=== PATIENT | female | born 1970 | race Caucasian/White ===

== ENCOUNTER 2017-05-16 19:45 | Observation (INO) | payer BC, MEDICAID ==
[2017-05-16] MEDS ORDERED: LORazepam 2 MG/ML MDV IVPUSH ONE (19:47)
[2017-05-16] MEDS ORDERED: Sodium Chloride 0.9% 1,000 ML IV ONE (19:47)
[2017-05-16] MEDS ORDERED: Sodium Chloride 0.9% 10 ML Syringe FLUSH PRN (19:47)
[2017-05-16] MEDS ORDERED: Ketorolac 30 MG/ML SDV IVPUSH ONE (19:47)
[2017-05-16] MEDS ORDERED: Sodium Chloride 0.9% 2.5 ML Syringe FLUSH PRN (19:47)
--- NOTE | 2017-05-16 19:52 | EDM.PDOC ---
ED HPI GENERAL MEDICAL PROBLEM - General Stated Complaint: PT HAS STOMACH PAINS Time Seen by Provider: 05/16/17 19:45 - History of Present Illness INITIAL COMMENTS - FREE TEXT/NARRATIVE: HISTORY AND PHYSICAL: History of present illness: The patient is a 46-year-old female with a history of a total hysterectomy who presents via EMS after having a syncopal event states was secondary to discomfort. According to the patient she had a normal day today but only drink 2 diet sodas all day and no hydration and was outside with family and friends when she passed out. According to EMS he was nauseated when she woke and the syncope was only brief and she had no trauma. Broderick prior to arrival. The patient states that she had a normal day until she started having some numbness and tingling in her left fifth digit and she went to see a chiropractor today at 5 PM. She had a neck and back adjusted I did not feel any significant changes. She says that she started having lower abdominal cramping and diffuse body aches after she had the brief syncopal event. The patient is not very organized with her history and it is difficult to obtain but she currently complaints of lower abdominal cramping and discomfort but no back or neck pain. She has no chest pain or shortness of breath no headache and no focal weakness. Patient is unsure if she had a bowel movement today and does state that she's had decreased urine output throughout the day and thinks she might be dehydrated. Review of systems: As per history of present illness and below otherwise all systems reviewed and negative. Past medical history: As per history of present illness and as reviewed below otherwise noncontributory. Surgical history: As per history of present illness and as reviewed below otherwise noncontributory. Social history: No reported history of drug or alcohol abuse. Family history: As per history of present illness and as reviewed below otherwise noncontributory. Physical exam: Gen.: Well-developed thin female who is nontoxic and has difficulty sitting still in the ED. During the taking of the blood pressure with the cuff she had carpal spasm. She moves all extremities spontaneously HEENT: Atraumatic, normocephalic, pupils reactive, negative for conjunctival pallor or scleral icterus, mucous membranes tacky, throat clear, neck supple, nontender, trachea midline. Lungs: Clear to auscultation, breath sounds equal bilaterally, chest nontender. Heart: S1S2, regular, negative for clicks, rubs, or JVD. Abdomen: Soft, nondistended, nontender on deep palpation but the patient indicates the lower abdomen is the area of cramping. Bowel sounds are hypoactive and there is no rebound guarding or tympany on percussion.. Negative for masses or hepatosplenomegaly. Negative for costovertebral tenderness. Pelvis: Stable nontender. Genitourinary: Deferred. Rectal: Deferred. Extremities: Atraumatic, negative for cords or calf pain. Neurovascular unremarkable. Full range of motion without any defects or deficits Neuro: Awake, alert, oriented. Cranial nerves II through XII unremarkable. Cerebellum unremarkable. Motor and sensory unremarkable throughout. Exam nonfocal. Back: There are no midline step-offs in his defects of the cervical thoracic or lumbar spine no posterior rib tenderness. There is no evidence of any soft tissue injuries seen on the back Diagnostics: EKG CBC CMP amylase lipase troponin UA CT scan of the head abdomen and pelvis Therapeutics: IV O2 monitor IV fluids, patient received Zofran per EMS, Toradol Ativan Per nursing when the patient got up to go to the bathroom she seemed very unsteady with her gait and somewhat lightheaded. I discussed all testing results with the patient and family at bedside. They state that she has had episodes in the past with similar symptomatology of brief episodes of syncope and they agree that she is not quite at her baseline. The patient has no abdominal complaints currently and is sleeping. I discussed the CT scan results with the children at bedside and will discuss the case with our hospitalist for admission. 2255: Case was discussed with Dr. Hanna who request that orthostatics be done and he accepts the patient for admission. Impression: Syncope Definitive disposition and diagnosis as appropriate pending reevaluation and review of above. Abdominal Pain Score (Numeric/FACES): 7 - Related Data Allergies Allergy/AdvReac Type Severity Reaction Status Date / Time cyclobenzaprine HCl Allergy Intermediate Rash Verified 05/22/15 06:05 [From Flexeril] sulfamethoxazole Allergy Intermediate Hives Verified 05/22/15 06:05 [From Bactrim] trimethoprim [From Bactrim] Allergy Intermediate Hives Verified 05/22/15 06:05 codeine Allergy Swelling Verified 03/18/15 13:54 hydrocodone Allergy Swelling Verified 03/18/15 13:54 latex Allergy Respiratory Verified 03/18/15 13:54 Depression metronidazole [From Flagyl] Allergy Itching Verified 03/18/15 13:54 nitrofurantoin Allergy Rash Verified 03/18/15 13:54 [From Macrobid] nitrofurantoin Allergy Rash Verified 03/18/15 13:54 macrocrystalline [From Macrobid] Benzoine Allergy Hives Uncoded 03/18/15 13:54 Sulfa Allergy Hives Uncoded 03/18/15 13:54 Home Meds: Home Meds Acetaminophen/oxyCODONE [Percocet 325-5 MG] 1 - 2 tab PO Q6H #15 tablet [Rx] Estradiol Acetate [Femring] 1 each VG DAILY 03/19/15 [History] Ethinyl Estradiol/Etonogestrel [Nuvaring Vaginal Ring] 1 05/22/15 [History] Past Medical History Other OB/BYN History: biopsy and mass removed from vagina - Past Surgical History Other GI Surgeries/Procedures: lab band Other Musculoskeletal Surgeries/Procedures:: L knee surgery, R thumb surgery Social & Family History - Tobacco Use Smoking Status *Q: Light Tobacco Smoker Years of Tobacco use: 30 Second Hand Smoke Exposure: Yes - Alcohol Use Days Per Week of Alcohol Use: 0 Number of Drinks Per Day: 0 Total Drinks Per Week: 0 - Recreational Drug Use Recreational Drug Use: Yes Drug Use in Last 12 Months: No Recreational Drug Type: Reports: Marijuana/Hashish, Methamphetamine Recreational Drug Use Frequency: Not Used In Over 1 Year ED ROS GENERAL - Review of Systems Review Of Systems: ROS reveals no pertinent complaints other than HPI. ED EXAM, GENERAL - Physical Exam Exam: See Below (see dictation) Course - Vital Signs Last Recorded V/S: Last Vital Signs Temp 35.8 C 05/16/17 20:38 Pulse 88 05/16/17 20:38 Resp 20 05/16/17 20:38 BP 137/98 H 05/16/17 20:38 Pulse Ox 95 05/16/17 20:38 - Orders/Labs/Meds Orders: Active Orders 24 hr Category Date Time Status Patient Status [ADT] Stat ADT 05/16/17 22:59 Ordered Cardiac Monitoring [RC] . DIRECTED Care 05/16/17 19:46 Active EKG Documentation Completion [RC] STAT Care 05/16/17 19:46 Active Orthostatic Vital Signs [RC] ASDIRECTED Care 05/16/17 22:58 Ordered Oxygen Therapy, ED [RC] ASDIRECTED Care 05/16/17 19:46 Active Pulse Oximetry [RC] ASDIRECTED Care 05/16/17 19:46 Active Abdomen Pelvis w Cont [CT] Stat Exams 05/16/17 19:47 Taken Head wo Cont [CT] Stat Exams 05/16/17 19:47 Taken Sodium Chloride 0.9% [Saline Flush] Med 05/16/17 19:47 Active 10 ml FLUSH ASDIRECTED PRN Sodium Chloride 0.9% [Saline Flush] Med 05/16/17 19:47 Active 2.5 ml FLUSH ASDIRECTED PRN Saline Lock Insert [OM.PC] Stat Oth 05/16/17 19:46 Ordered Medication Orders Sodium Chloride (Saline Flush) 10 ml FLUSH ASDIRECTED PRN PRN Reason: Keep Vein Open Last Admin: 05/16/17 20:06 Dose: 10 ml Sodium Chloride (Saline Flush) 2.5 ml FLUSH ASDIRECTED PRN PRN Reason: Keep Vein Open Last Admin: 05/16/17 20:06 Dose: 2.5 ml Labs: Laboratory Tests 05/16/17 05/16/17 05/16/17 Range/Units 19:57 19:57 19:57 WBC 6.48 (4.0-11.0) K/uL RBC 4.07 L (4.30-5.90) M/uL Hgb 12.3 (12.0-16.0) g/dL Hct 35.9 L (36.0-46.0) % MCV 88.2 (80.0-98.0) fL MCH 30.2 (27.0-32.0) pg MCHC 34.3 (31.0-37.0) g/dL RDW Std Deviation 41.9 (28.0-62.0) fl RDW Coeff of Vianey 13 (11.0-15.0) % Plt Count 311 (150-400) K/uL MPV 8.80 (7.40-12.00) fL Neut % (Auto) 47.0 L (48.0-80.0) % Lymph % (Auto) 43.8 H (16.0-40.0) % Tyrrell % (Auto) 5.6 (0.0-15.0) % Eos % (Auto) 2.8 (0.0-7.0) % Baso % (Auto) 0.8 (0.0-1.5) % Neut # (Auto) 3.1 (1.4-5.7) K/uL Lymph # (Auto) 2.8 H (0.6-2.4) K/uL Tyrrell # (Auto) 0.4 (0.0-0.8) K/uL Eos # (Auto) 0.2 (0.0-0.7) K/uL Baso # (Auto) 0.1 (0.0-0.1) K/uL Nucleated RBC % 0.0 /100WBC Nucleated RBCs # 0 K/uL Sodium 141 (136-146) mmol/L Potassium 3.3 L (3.5-5.1) mmol/L Chloride 108 (98-110) mmol/L Carbon Dioxide 22 (21-31) mmol/L BUN 14 (6.0-23.0) mg/dL Creatinine 0.8 (0.6-1.5) mg/dL Est Cr Clr Drug Dosing TNP Estimated GFR (MDRD) > 60.0 ml/min Glucose 109 (60-110) mg/dL Calcium 8.4 L (8.8-10.8) mg/dL Total Bilirubin 0.3 (0.1-1.5) mg/dL AST 17 (5-40) IU/L ALT 11 (8-54) IU/L Alkaline Phosphatase 58 (40-150) Troponin I < 0.10 (0.0-0.29) NG/ML Total Protein 6.0 (6.0-8.0) g/dL Albumin 3.7 (3.5-5.0) g/dL Globulin 2.3 (2.0-3.5) g/dL Albumin/Globulin Ratio 1.6 (1.3-2.8) Amylase 37 (10-90) U/L Lipase 21 (7-80) U/L Urine Color Urine Appearance Urine pH (5.0-8.0) Ur Specific [place] (1.001-1.035) Urine Protein (NEGATIVE) mg/dL Urine Glucose (UA) (NEGATIVE) mg/dL Urine Ketones (NEGATIVE) mg/dL Urine Occult Blood (NEGATIVE) Urine Nitrite (NEGATIVE) Urine Bilirubin (NEGATIVE) Urine Urobilinogen (<2.0) EU/dL Ur Leukocyte Esterase (NEGATIVE) Urine RBC (0-2/HPF) Urine WBC (0-5/HPF) Ur Epithelial Cells (NONE-FEW) Urine Bacteria (NEGATIVE) 05/16/17 Range/Units 22:05 WBC (4.0-11.0) K/uL RBC (4.30-5.90) M/uL Hgb (12.0-16.0) g/dL Hct (36.0-46.0) % MCV (80.0-98.0) fL MCH (27.0-32.0) pg MCHC (31.0-37.0) g/dL RDW Std Deviation (28.0-62.0) fl RDW Coeff of Vianey (11.0-15.0) % Plt Count (150-400) K/uL MPV (7.40-12.00) fL Neut % (Auto) (48.0-80.0) % Lymph % (Auto) (16.0-40.0) % Tyrrell % (Auto) (0.0-15.0) % Eos % (Auto) (0.0-7.0) % Baso % (Auto) (0.0-1.5) % Neut # (Auto) (1.4-5.7) K/uL Lymph # (Auto) (0.6-2.4) K/uL Tyrrell # (Auto) (0.0-0.8) K/uL Eos # (Auto) (0.0-0.7) K/uL Baso # (Auto) (0.0-0.1) K/uL Nucleated RBC % /100WBC Nucleated RBCs # K/uL Sodium (136-146) mmol/L Potassium (3.5-5.1) mmol/L Chloride (98-110) mmol/L Carbon Dioxide (21-31) mmol/L BUN (6.0-23.0) mg/dL Creatinine (0.6-1.5) mg/dL Est Cr Clr Drug Dosing Estimated GFR (MDRD) ml/min Glucose (60-110) mg/dL Calcium (8.8-10.8) mg/dL Total Bilirubin (0.1-1.5) mg/dL AST (5-40) IU/L ALT (8-54) IU/L Alkaline Phosphatase (40-150) Troponin I (0.0-0.29) NG/ML Total Protein (6.0-8.0) g/dL Albumin (3.5-5.0) g/dL Globulin (2.0-3.5) g/dL Albumin/Globulin Ratio (1.3-2.8) Amylase (10-90) U/L Lipase (7-80) U/L Urine Color YELLOW Urine Appearance CLEAR Urine pH 6.0 (5.0-8.0) Ur Specific [place] <= 1.005 (1.001-1.035) Urine Protein NEGATIVE (NEGATIVE) mg/dL Urine Glucose (UA) NEGATIVE (NEGATIVE) mg/dL Urine Ketones NEGATIVE (NEGATIVE) mg/dL Urine Occult Blood NEGATIVE (NEGATIVE) Urine Nitrite NEGATIVE (NEGATIVE) Urine Bilirubin NEGATIVE (NEGATIVE) Urine Urobilinogen 0.2 (<2.0) EU/dL Ur Leukocyte Esterase NEGATIVE (NEGATIVE) Urine RBC 0-1 (0-2/HPF) Urine WBC 0-2 (0-5/HPF) Ur Epithelial Cells FEW (NONE-FEW) Urine Bacteria FEW (NEGATIVE) Meds: Medications Generic Name Dose Route Start Last Admin Trade Name Freq PRN Reason Stop Dose Admin Sodium Chloride 10 ml 05/16/17 19:47 05/16/17 20:06 Saline Flush FLUSH 10 ml ASDIRECTED PRN Administration Keep Vein Open Sodium Chloride 2.5 ml 05/16/17 19:47 05/16/17 20:06 Saline Flush FLUSH 2.5 ml ASDIRECTED PRN Administration Keep Vein Open Discontinued Medications Generic Name Dose Route Start Last Admin Trade Name Freq PRN Reason Stop Dose Admin Sodium Chloride 1,000 mls @ 999 mls/hr 05/16/17 19:47 05/16/17 20:06 Normal Saline IV 05/16/17 20:47 999 mls/hr STAT ONE Administration Iopamidol 100 ml 05/16/17 20:08 05/16/17 20:09 Isovue Multipack-370 (76%) IVPUSH 05/16/17 20:09 100 ml ONETIME STA Administration Ketorolac Tromethamine 30 mg 05/16/17 19:47 05/16/17 20:10 Toradol IVPUSH 05/16/17 19:48 30 mg ONETIME ONE Administration Lorazepam 0.5 mg 05/16/17 19:47 05/16/17 20:07 Ativan IVPUSH 05/16/17 19:48 0.5 mg ONETIME ONE Administration Departure - Departure Time of Disposition: 23:00 Disposition: Refer to Observation Condition: Good Clinical Impression: Syncope Qualifiers: Syncope type: unspecified Qualified Code(s): R55 - Syncope and collapse - Discharge Information - My Orders Last 24 Hours: My Active Orders 05/16/17 19:46 Cardiac Monitoring [RC] . DIRECTED EKG Documentation Completion [RC] STAT Oxygen Therapy, ED [RC] ASDIRECTED Pulse Oximetry [RC] ASDIRECTED Saline Lock Insert [OM.PC] Stat 05/16/17 19:47 Abdomen Pelvis w Cont [CT] Stat Head wo Cont [CT] Stat Sodium Chloride 0.9% [Saline Flush] 10 ml FLUSH ASDIRECTED PRN Sodium Chloride 0.9% [Saline Flush] 2.5 ml FLUSH ASDIRECTED PRN 05/16/17 22:58 Orthostatic Vital Signs [RC] ASDIRECTED 05/16/17 22:59 Patient Status [ADT] Stat - Assessment/Plan Last 24 Hours: My Active Orders 05/16/17 19:46 Cardiac Monitoring [RC] . DIRECTED EKG Documentation Completion [RC] STAT Oxygen Therapy, ED [RC] ASDIRECTED Pulse Oximetry [RC] ASDIRECTED Saline Lock Insert [OM.PC] Stat 05/16/17 19:47 Abdomen Pelvis w Cont [CT] Stat Head wo Cont [CT] Stat Sodium Chloride 0.9% [Saline Flush] 10 ml FLUSH ASDIRECTED PRN Sodium Chloride 0.9% [Saline Flush] 2.5 ml FLUSH ASDIRECTED PRN 05/16/17 22:58 Orthostatic Vital Signs [RC] ASDIRECTED 05/16/17 22:59 Patient Status [ADT] Stat
[2017-05-16] MEDS ORDERED: Iopamidol 755 MG/ML 500 ML Multipack Bottle IVPUSH STA (20:08)
[2017-05-16 20:28] LABS: CHLORIDE,CL 108 mmol/L (98-110); SODIUM,NA 141 mmol/L (136-146)
[2017-05-16] MEDS ORDERED: Sodium Chloride 0.9% 1,000 ML IV SCH (22:30)
[2017-05-17] MEDS ORDERED: Potassium Chloride 20 MEQ Tab.ER PO ONE (00:07)
[2017-05-17] MEDS ORDERED: Sodium Chloride 0.9% 1,000 ML IV SCH (01:15)
[2017-05-17] MEDS ORDERED: Ondansetron 4 MG/2 ML SDV IVPUSH PRN (01:59)
[2017-05-17] MEDS: Sodium Chloride 0.9% 1,000 ML IV SCH ×2 (02:30→10:19)
[2017-05-17 04:28] VITALS: BP 110/60
[2017-05-17 05:42] LABS: CHLORIDE,CL 116 mmol/L (98-110); SODIUM,NA 141 mmol/L (136-146)
--- NOTE | 2017-05-17 08:43 | PCM.HP ---
H&P History of Present Illness - General Date of Service: 05/17/17 Source of Information: Patient History Limitations: Reports: No Limitations - History of Present Illness Initial Comments - Free Text/Narative: This 46 year old female with pmh of lap band in 2008 presented to the ED last evening with an episode of syncope. This morning she reports the episode yesterday afternoon, it was a normal day but only drink 2 diet sodas all day and no water and was outside with family and friends when she passed out. She remembers feeling "off" and walking to her car to get a diet coke. She got to a table and looked at her car, she just knew she wasn't going to make it. She sat down in a chair and the next thing she knew she woke up with cramping pain to her whole body and abdomen. She felt nauseated as well. EMS gave her Zofran prior to arrival. The patient states that she had a normal day until she started having some numbness and tingling in her left fifth digit and she went to see a chiropractor today at 5 PM. She had a neck and back adjusted with out any significant changes to numbness. 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 She reports being able to massage her neck and shoulder which helps with the numbness and at times will send a shooting pain to her arm when she "hits the knot" in her shoulder. She says that she started having lower abdominal cramping and diffuse body aches after she had the brief syncopal event. This morning she is not complaining of any further cramping, her abdomen is tender and she is still nauseated at times. She is tolerating CL well. She denies any chest pain, headache, palpitations and no weakness. She reports not drinking water really at all. She drinks diet coke and Crystal light. She is requesting discharge today. In the ED, labwork WNL, except for slight hypokalemia and hypomagnesemia. UA negative. Head CT negative as well. Abdominal CT completed due to abdominal cramping, this revealed lap band device in the region of the proximal stomach, wall thickening in theron proximal gastric pouch and at the GE junction noted. She prior to syncope had no abdominal symptoms. She was noted to be hypotension and orthostatic in the ED. She was admitted for syncope secondary to hypotension and dehydration. PCPRafaela Abdominal Pain Score (Numeric/FACES): 5 - Related Data Allergies/Adverse Reactions: Allergies Allergy/AdvReac Type Severity Reaction Status Date / Time cyclobenzaprine HCl Allergy Intermediate Rash Verified 05/22/15 06:05 [From Flexeril] sulfamethoxazole Allergy Intermediate Hives Verified 05/22/15 06:05 [From Bactrim] trimethoprim [From Bactrim] Allergy Intermediate Hives Verified 05/22/15 06:05 codeine Allergy Swelling Verified 03/18/15 13:54 hydrocodone Allergy Swelling Verified 03/18/15 13:54 latex Allergy Respiratory Verified 03/18/15 13:54 Depression metronidazole [From Flagyl] Allergy Itching Verified 03/18/15 13:54 nitrofurantoin Allergy Rash Verified 03/18/15 13:54 [From Macrobid] nitrofurantoin Allergy Rash Verified 03/18/15 13:54 macrocrystalline [From Macrobid] Benzoine Allergy Hives Uncoded 03/18/15 13:54 Sulfa Allergy Hives Uncoded 03/18/15 13:54 Home Medications: Home Meds Acetaminophen/oxyCODONE [Percocet 325-5 MG] 1 - 2 tab PO Q6H #15 tablet [Rx] Estradiol Acetate [Femring] 1 each VG DAILY 03/19/15 [History] Ethinyl Estradiol/Etonogestrel [Nuvaring Vaginal Ring] 1 05/22/15 [History] Pantoprazole Sodium [Protonix] 40 mg PO DAILY #30 tablet. 05/17/17 [Rx] Past Medical History Cardiovascular History: Reports: None. Denies: Afib, Blood Clots/VTE/DVT, High Cholesterol, Hypertension, MT Respiratory History: Reports: None. Denies: COPD, PE Gastrointestinal History: Reports: GERD Other OB/BYN History: biopsy and mass removed from vagina Endocrine/Metabolic History: Denies: Diabetes, Type II, Hypothyroidism, Obesity/ BMI 30+ - Past Surgical History GI Surgical History: Reports: Other (See Below) (lap band procedure) Other GI Surgeries/Procedures: lab band Other Musculoskeletal Surgeries/Procedures:: L knee surgery, R thumb surgery Social & Family History - Tobacco Use Smoking Status *Q: Light Tobacco Smoker Years of Tobacco use: 30 Packs/Tins Daily: 1 Second Hand Smoke Exposure: Yes - Caffeine Use Caffeine Use: Reports: Soda - Alcohol Use Days Per Week of Alcohol Use: 0 Number of Drinks Per Day: 0 Total Drinks Per Week: 0 - Recreational Drug Use Recreational Drug Use: No Drug Use in Last 12 Months: No Recreational Drug Type: Reports: Marijuana/Hashish, Methamphetamine Recreational Drug Use Frequency: Not Used In Over 1 Year H&P Review of Systems - Review of Systems: Review Of Systems: See Below General: Reports: No Symptoms. Denies: Fever, Chills, Weakness HEENT: Reports: No Symptoms. Denies: Sinus Congestion, Sore Throat Pulmonary: Reports: No Symptoms. Denies: Shortness of Breath Cardiovascular: Reports: No Symptoms. Denies: Chest Pain Gastrointestinal: Reports: No Symptoms, Nausea (after syncopal episode and this morning.), Vomiting. Denies: Abdominal Pain, Black Stool, Bloody Stool Genitourinary: Reports: No Symptoms. Denies: Dysuria, Frequency, Burning Musculoskeletal: Reports: Neck Pain (Left cervical, shoulder blade, no nuchal rigidity and no tenderness over vertebra), Shoulder Pain Skin: Reports: No Symptoms Psychiatric: Denies: Confusion Neurological: Reports: Numbness (L fifith digit) Hematologic/Lymphatic: Reports: No Symptoms Immunologic: Reports: No Symptoms Exam - Exam Exam: See Below - Vital Signs Vital Signs: Last Vital Signs Temp 97.9 F 05/17/17 04:09 Pulse 56 L 05/17/17 04:09 Resp 16 05/17/17 04:09 BP 110/60 05/17/17 04:09 Pulse Ox 98 05/17/17 08:00 Orthostatic Blood Pressure [ 103/52 Standing] Orthostatic Blood Pressure [ 103/58 Sitting] Orthostatic Blood Pressure [ 101/50 Supine] Weight: 51 kg - Exam General: Alert, Oriented, Cooperative HEENT: Conjunctiva Clear, Mucosa Moist & [place], Nares Patent, Pupils Equal, Pupils Reactive Neck: Supple, Trachea Midline, Full Range of Motion (no nuchal rigidity, some tenderness to L trapezius muscle with palpation and she says this is where if she massages it causes some shooting pain down her arm. ) Lungs: Clear to Auscultation, Normal Respiratory Effort. No: Rhonchi Cardiovascular: Regular Rate, Regular Rhythm, Normal S1, Normal S2. No: Systolic Murmur GI/Abdominal Exam: Normal Bowel Sounds, Soft, Non-Tender, No Organomegaly, No Distention, No Abnormal Bruit, No Mass, Pelvis Stable Extremities: Normal Inspection, Normal Range of Motion, Non-Tender, No Pedal Edema, Normal Capillary Refill Neuro Extensive - Mental Status: Alert, Oriented x3, Normal Mood/Affect, Normal Cognition Neuro Extensive - Motor, Sensory, Reflexes: CN II-XII Intact Psychiatric: Alert, Normal Affect, Normal Mood - Patient Data Lab Results Last 24 hrs: Laboratory Results - last 24 hr 05/17/17 05/17/17 Range/Units 04:55 04:55 WBC 6.23 (4.0-11.0) K/uL RBC 3.67 L (4.30-5.90) M/uL Hgb 10.9 L (12.0-16.0) g/dL Hct 33.0 L (36.0-46.0) % MCV 89.9 (80.0-98.0) fL MCH 29.7 (27.0-32.0) pg MCHC 33.0 (31.0-37.0) g/dL RDW Std Deviation 43.5 (28.0-62.0) fl RDW Coeff of Vianey 13 (11.0-15.0) % Plt Count 249 (150-400) K/uL MPV 9.00 (7.40-12.00) fL Nucleated RBC % 0.0 /100WBC Nucleated RBCs # 0 K/uL Sodium 141 (136-146) mmol/L Potassium 3.9 (3.5-5.1) mmol/L Chloride 116 H (98-110) mmol/L Carbon Dioxide 23 (21-31) mmol/L BUN 10 (6.0-23.0) mg/dL Creatinine 0.6 (0.6-1.5) mg/dL Est Cr Clr Drug Dosing 82.36 mL/min Estimated GFR (MDRD) > 60.0 ml/min Glucose 104 (60-110) mg/dL Calcium 7.2 L (8.8-10.8) mg/dL Phosphorus 3.6 (2.4-4.7) mg/dL Magnesium 1.2 L (1.5-2.3) mEq/L Result Diagrams: 05/17/17 04:55 05/17/17 04:55 *Q Meaningful Use (ADM) - VTE *Q VTE Criteria *Q: - Stroke *Q Stroke Criteria *Q: - AMI *Q AMI Criteria *Q: - Problem List (1) Syncope SNOMED Code(s): 937054636 ICD Code: R55 - SYNCOPE AND COLLAPSE Status: Acute Qualifiers: Syncope type: unspecified Qualified Code(s): R55 - Syncope and collapse (2) Dehydration SNOMED Code(s): 12912489 ICD Code: E86.0 - DEHYDRATION Status: Acute (3) Hx of laparoscopic gastric banding SNOMED Code(s): 313090057, 660070555 ICD Code: Z98.84 - BARIATRIC SURGERY STATUS Status: Chronic (4) Hypotension SNOMED Code(s): 20448242 ICD Code: I95.9 - HYPOTENSION, UNSPECIFIED Status: Resolved (5) Abdominal pain SNOMED Code(s): 63822844 ICD Code: R10.9 - UNSPECIFIED ABDOMINAL PAIN Status: Acute Qualifiers: Abdominal location: lower abdomen, unspecified Qualified Code(s): R10.30 - Lower abdominal pain, unspecified Problem List Initiated/Reviewed/Updated: Yes Orders Last 24hrs: Active Orders 24 hr Category Date Time Status Antiembolic Devices [RC] PER UNIT ROUTINE Care 05/17/17 00:10 Active Orthostatic Vital Signs [RC] Q4HR Care 05/17/17 01:26 Active Oxygen Therapy [RC] PRN Care 05/17/17 00:09 Active Telemetry Monitoring [Cardiac Monitoring] [RC] . Care 05/16/17 23:56 Active DIRECTED VTE/DVT Education [RC] PER UNIT ROUTINE Care 05/17/17 00:09 Active Vital Signs [RC] Q4H Care 05/17/17 00:09 Active Regular Diet [DIET] Diet 05/17/17 Breakfast Active MAGNESIUM [CHEM] AM Lab 05/18/17 05:11 Ordered MAGNESIUM [CHEM] AM Lab 05/19/17 05:11 Ordered MAGNESIUM [CHEM] AM Lab 05/20/17 05:11 Ordered MAGNESIUM [CHEM] AM Lab 05/21/17 05:11 Ordered MAGNESIUM [CHEM] AM Lab 05/22/17 05:11 Ordered Ondansetron [Zofran] Med 05/17/17 01:59 Active 4 mg IVPUSH Q4H PRN Sodium Chloride 0.9% [Normal Saline] 1,000 ml Med 05/17/17 02:30 Active IV ASDIRECTED Sequential Compression Device [OM.PC] Per Unit Routine Oth 05/17/17 00:09 Ordered Medication Orders Sodium Chloride (Normal Saline) 1,000 mls @ 125 mls/hr IV ASDIRECTED LASHAY Last Admin: 05/17/17 02:30 Dose: 125 mls/hr Ondansetron HCl (Zofran) 4 mg IVPUSH Q4H PRN PRN Reason: Nausea/Vomiting Last Admin: 05/17/17 02:12 Dose: 4 mg Sodium Chloride (Saline Flush) 10 ml FLUSH ASDIRECTED PRN PRN Reason: Keep Vein Open Last Admin: 05/16/17 20:06 Dose: 10 ml Sodium Chloride (Saline Flush) 2.5 ml FLUSH ASDIRECTED PRN PRN Reason: Keep Vein Open Last Admin: 05/16/17 20:06 Dose: 2.5 ml Assessment/Plan Comment:: Discharge Plan: Discharge diagnoses dehydration-resolved hypotension-resolved Syncope secondary to dehydration hypotension Hx lap band Padmini was admitted and treated with fluids and potassium supplementation overnight. K= today 3.9 and Magnesium 1.2, supplemented with 2 gm IV. This morning she is requesting discharge. She continues to have some numbness to L fifth digit, but otherwise denies neck pain. She ate breakfast and had an emesis after eating. She continued to tolerate CL diet, only complains of abdominal tenderness, no significant pain or heartburn. She really wants to go home and is urged to return to the ED or clinic if concerns should arise. She is aware of CT results regarding inflammation near lap band, I will discharge her on Protonix for suspected gastritis. But if she continues to have concerns she will need to see her GI specialist or surgeon regarding this inflammation. She will have close follow up with PCP Dr. Russo. Hypotension resolved with IVFs.
--- NOTE | 2017-05-17 10:58 | CT ---
EXAM DATE: 05/16/17 PATIENT'S AGE: 46 Patient: LEONARDO TALAVERA Facility: [place], [place] Site . Site : 1970 Study: CT Head [id number]/24/2017 9:44:12 PM Ordering Physician: Doctor Landaverde Final Report: INDICATION: pain TECHNIQUE: Noncontrast scans obtained from the foramen magnum through the vertex. COMPARISON: None. FINDINGS: 1. Intracranial contents are normal. No evidence for hemorrhage, mass or infarct. Ventricles are normal size. [place]-white matter differentiation is normal. 2. The skull is negative for fractures or bony lesions. 3. The paranasal sinuses, mastoid air cells and middle ears are clear. IMPRESSION: Negative head CT. Dictated by Lupillo Wilkins MD @ 05/16/2017 10:08:47 PM Dictated by: Lupillo Wilkins MD @ 05/16/2017 22:08:54 (Electronic Signature) Report Signed by Proxy. JORDAN
--- NOTE | 2017-05-17 10:58 | CT ---
EXAM DATE: 05/16/17 PATIENT'S AGE: 46 Patient: LEONARDO TALAVERA Facility: [place], [place] Site . Site : 1970 Study: CT Abdomen/Pelvis [id number]/24/2017 9:45:17 PM Ordering Physician: Doctor Landaverde Final Report: INDICATION: pain TECHNIQUE: Helical scans obtained through the abdomen and pelvis after administration of 100 cc of Isovue-370 intravenously. COMPARISON: None. FINDINGS: 1. Previous gastric surgery with lap band device. Fluid is noted in the stomach proximal to the lap band device. There is also wall thickening in the region of the proximal gastric pouch and GE junction. Some fluid and gas are noted in the distal stomach without associated wall thickening. 2. Focal fatty change in the left hepatic lobe and small hepatic cysts. 3. Spleen, pancreas, adrenals and gallbladder are normal. 4. Kidneys are normal without calculi, masses or hydronephrosis. 5. Considerable stool in the colon. No evidence for colitis or diverticulitis. No free fluid or free air in the peritoneal cavity. 6. Pessary device in the vagina. The uterus appears to be surgically absent. Bladder is normal. 7. Degenerative disc disease at L5-S1. IMPRESSION: 1. Lap band device in the region of the proximal stomach. Wall thickening in the proximal gastric pouch and at the GE junction suggesting inflammation. Correlate clinically. 2. Considerable stool throughout the colon. 3. Other incidental findings as mentioned above. Dictated by Lupillo Wilkins MD @ 05/16/2017 10:21:15 PM Dictated by: Lupillo Wilkins MD @ 05/16/2017 22:21:31 (Electronic Signature) Report Signed by Proxy. JORDAN
[2017-05-17] MEDS ORDERED: Magnesium Sulfate/Water 2 GM in Premix Bag 1 BAG IV ONE (12:21)
== END 2017-05-17 14:05 | disposition home or self-care (01) ==
LOC: MW.ED 19:45 → MW.MS 23:16
PROVIDERS: ADMIT Internal Medicine; ATTEND Internal Medicine
DX: I95.9 Hypotension, unspecified (principal); E86.0 Dehydration; R10.30 Lower abdominal pain, unspecified; F17.200 Nicotine dependence, unspecified, uncomplicated; K21.9 Gastro-esophageal reflux disease without esophagitis; Z98.84 Bariatric surgery status; Z98.890 Other specified postprocedural states
CPT/HCPCS: 36415; 70450; 74177; 80048; 80053; 81001; 82150; 83605; 83690; 83735; 84100; 84484; 85025; 85027; 93005; 96361; 96374; 96375; 99285; G0378; J1885; J2060; J2405; J3475; J7040; Q9967; A9270-GY

== ENCOUNTER 2018-07-19 12:03 | Emergency (ER) | payer MEDICAID ==
[2018-07-19] MEDS ORDERED: Ketorolac 30 MG/ML SDV IVPUSH ONE (12:17)
[2018-07-19] MEDS ORDERED: Sodium Chloride 0.9% 1,000 ML IV ONE (12:17)
[2018-07-19] MEDS ORDERED: Ondansetron 4 MG/2 ML SDV IVPUSH ONE (12:17)
--- NOTE | 2018-07-19 12:20 | EDM.PDOC ---
ED HPI GENERAL MEDICAL PROBLEM - General Chief Complaint: Abdominal Pain Stated Complaint: STOMACH PAIN Time Seen by Provider: 07/19/18 12:15 - History of Present Illness INITIAL COMMENTS - FREE TEXT/NARRATIVE: HISTORY AND PHYSICAL: History of present illness: Patient a 48-year-old white female presents with concern of abdominal pain this is been intermittent crampy in nature since Tuesday when she had a chocolate malt from [employer] she states this may been the culprit she remains uncertain is been no fever no chills she did have one episode of blood per rectum she denies known history of diverticulosis or diverticulitis she has no other complaints and denies trauma is been no urinary symptoms no vaginal discharge or irregular bleeding Review of systems: As per history of present illness and below otherwise all systems reviewed and negative. Past medical history: As per history of present illness and as reviewed below otherwise noncontributory. Surgical history: As per history of present illness and as reviewed below otherwise noncontributory. Social history: No reported history of drug or alcohol abuse. Family history: As per history of present illness and as reviewed below otherwise noncontributory. Physical exam: HEENT: Atraumatic, normocephalic, pupils reactive, negative for conjunctival pallor or scleral icterus, mucous membranes moist, throat clear, neck supple, nontender, trachea midline. Lungs: Clear to auscultation, breath sounds equal bilaterally, chest nontender. Heart: S1S2, regular, negative for clicks, rubs, or JVD. Abdomen: Soft, nondistended, non localized tenderness noted. Negative for masses or hepatosplenomegaly. Negative for costovertebral tenderness. Pelvis: Stable nontender. Genitourinary: Deferred. Rectal: Deferred. Extremities: Atraumatic, negative for cords or calf pain. Neurovascular unremarkable. Neuro: Awake, alert, oriented. Cranial nerves II through XII unremarkable. Cerebellum unremarkable. Motor and sensory unremarkable throughout. Exam nonfocal. Diagnostics: CBC CMP UA hCG lipase CT abdomen and pelvis Therapeutics: saline 1 L bolus and Toradol 30 no grams IV Zofran 4 mg IV Impression: #1 abdominal pain Definitive disposition and diagnosis as appropriate pending reevaluation and review of above. lower abdomen Pain Score (Numeric/FACES): 10 - Related Data Allergies Allergy/AdvReac Type Severity Reaction Status Date / Time cyclobenzaprine HCl Allergy Intermediate Rash Verified 07/19/18 12:13 [From Flexeril] sulfamethoxazole Allergy Intermediate Hives Verified 07/19/18 12:13 [From Bactrim] trimethoprim [From Bactrim] Allergy Intermediate Hives Verified 07/19/18 12:13 codeine Allergy Swelling Verified 07/19/18 12:13 hydrocodone Allergy Swelling Verified 07/19/18 12:13 latex Allergy Respiratory Verified 07/19/18 12:13 Depression metronidazole [From Flagyl] Allergy Itching Verified 07/19/18 12:13 nitrofurantoin Allergy Rash Verified 07/19/18 12:13 [From Macrobid] nitrofurantoin Allergy Rash Verified 07/19/18 12:13 macrocrystalline [From Macrobid] Benzoine Allergy Hives Uncoded 03/18/15 13:54 Sulfa Allergy Hives Uncoded 03/18/15 13:54 Home Meds: Home Meds Estradiol Acetate [Femring] 1 each VG DAILY 03/19/15 [History] Past Medical History Cardiovascular History: Reports: None. Denies: Afib, Blood Clots/VTE/DVT, High Cholesterol, Hypertension, [place] Respiratory History: Reports: None. 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 ED EXAM, GENERAL - Physical Exam Exam: See Below (See dictation) Course - Vital Signs Last Recorded V/S: Last Vital Signs Temp 36.2 C 07/19/18 12:14 Pulse 84 07/19/18 12:14 Resp 18 07/19/18 12:14 BP 147/80 H 07/19/18 12:14 Pulse Ox 99 07/19/18 12:14 - Orders/Labs/Meds Labs: Laboratory Tests 07/19/18 07/19/18 07/19/18 Range/Units 12:48 12:48 12:48 WBC 9.35 (4.0-11.0) K/uL RBC 4.10 L (4.30-5.90) M/uL Hgb 12.3 (12.0-16.0) g/dL Hct 36.1 (36.0-46.0) % MCV 88.0 (80.0-98.0) fL MCH 30.0 (27.0-32.0) pg MCHC 34.1 (31.0-37.0) g/dL RDW Std Deviation 41.6 (28.0-62.0) fl RDW Coeff of Vian[place] 13 (11.0-15.0) % Plt Count 264 (150-400) K/uL MPV 8.70 (7.40-12.00) fL Neut % (Auto) 73.7 (48.0-80.0) % Lymph % (Auto) 19.1 (16.0-40.0) % [place] % (Auto) 4.4 (0.0-15.0) % Eos % (Auto) 2.2 (0.0-7.0) % Baso % (Auto) 0.6 (0.0-1.5) % Neut # (Auto) 6.9 H (1.4-5.7) K/uL Lymph # (Auto) 1.8 (0.6-2.4) K/uL [place] # (Auto) 0.4 (0.0-0.8) K/uL Eos # (Auto) 0.2 (0.0-0.7) K/uL Baso # (Auto) 0.1 (0.0-0.1) K/uL Nucleated RBC % 0.0 /100WBC Nucleated RBCs # 0 K/uL INR 1.05 Sodium 141 (136-145) mmol/L Potassium 3.7 (3.5-5.1) mmol/L Chloride 108 H (98-107) mmol/L Carbon Dioxide 27.5 (21.0-32.0) mmol/L BUN 11 (7.0-18.0) mg/dL Creatinine 0.6 (0.6-1.0) mg/dL Est Cr Clr Drug Dosing 79.36 mL/min Estimated GFR (MDRD) > 60.0 ml/min Glucose 83 (74-106) mg/dL Calcium 8.3 L (8.5-10.1) mg/dL Total Bilirubin 0.3 (0.2-1.0) mg/dL AST 17 (15-37) IU/L ALT 17 (14-63) IU/L Alkaline Phosphatase 61 (46-116) U/L Total Protein 6.4 (6.4-8.2) g/dL Albumin 3.4 (3.4-5.0) g/dL Globulin 3.0 (2.0-3.5) g/dL Albumin/Globulin Ratio 1.1 L (1.3-2.8) Lipase 106 (73-393) U/L HCG, Qual (NEG) Urine Color Urine Appearance Urine pH (5.0-8.0) Ur Specific [place] (1.001-1.035) Urine Protein (NEGATIVE) mg/dL Urine Glucose (UA) (NEGATIVE) mg/dL Urine Ketones (NEGATIVE) mg/dL Urine Occult Blood (NEGATIVE) Urine Nitrite (NEGATIVE) Urine Bilirubin (NEGATIVE) Urine Urobilinogen (<2.0) EU/dL Ur Leukocyte Esterase (NEGATIVE) Urine RBC (0-2/HPF) Urine WBC (0-5/HPF) Ur Epithelial Cells (NONE-FEW) Urine Bacteria (NEGATIVE) 07/19/18 07/19/18 Range/Units 12:48 13:54 WBC (4.0-11.0) K/uL RBC (4.30-5.90) M/uL Hgb (12.0-16.0) g/dL Hct (36.0-46.0) % MCV (80.0-98.0) fL MCH (27.0-32.0) pg MCHC (31.0-37.0) g/dL RDW Std Deviation (28.0-62.0) fl RDW Coeff of [place] (11.0-15.0) % Plt Count (150-400) K/uL MPV (7.40-12.00) fL Neut % (Auto) (48.0-80.0) % Lymph % (Auto) (16.0-40.0) % [place] % (Auto) (0.0-15.0) % Eos % (Auto) (0.0-7.0) % Baso % (Auto) (0.0-1.5) % Neut # (Auto) (1.4-5.7) K/uL Lymph # (Auto) (0.6-2.4) K/uL [place] # (Auto) (0.0-0.8) K/uL Eos # (Auto) (0.0-0.7) K/uL Baso # (Auto) (0.0-0.1) K/uL Nucleated RBC % /100WBC Nucleated RBCs # K/uL INR Sodium (136-145) mmol/L Potassium (3.5-5.1) mmol/L Chloride (98-107) mmol/L Carbon Dioxide (21.0-32.0) mmol/L BUN (7.0-18.0) mg/dL Creatinine (0.6-1.0) mg/dL Est Cr Clr Drug Dosing mL/min Estimated GFR (MDRD) ml/min Glucose (74-106) mg/dL Calcium (8.5-10.1) mg/dL Total Bilirubin (0.2-1.0) mg/dL AST (15-37) IU/L ALT (14-63) IU/L Alkaline Phosphatase (46-116) U/L Total Protein (6.4-8.2) g/dL Albumin (3.4-5.0) g/dL Globulin (2.0-3.5) g/dL Albumin/Globulin Ratio (1.3-2.8) Lipase (73-393) U/L HCG, Qual NEGATIVE (NEG) Urine Color YELLOW Urine Appearance HAZY Urine pH 5.5 (5.0-8.0) Ur Specific [place] 1.015 (1.001-1.035) Urine Protein NEGATIVE (NEGATIVE) mg/dL Urine Glucose (UA) NEGATIVE (NEGATIVE) mg/dL Urine Ketones NEGATIVE (NEGATIVE) mg/dL Urine Occult Blood NEGATIVE (NEGATIVE) Urine Nitrite NEGATIVE (NEGATIVE) Urine Bilirubin NEGATIVE (NEGATIVE) Urine Urobilinogen 0.2 (<2.0) EU/dL Ur Leukocyte Esterase NEGATIVE (NEGATIVE) Urine RBC 0-1 (0-2/HPF) Urine WBC 0-1 (0-5/HPF) Ur Epithelial Cells RARE (NONE-FEW) Urine Bacteria RARE (NEGATIVE) Meds: Medications Discontinued Medications Generic Name Dose Route Start Last Admin Trade Name Freq PRN Reason Stop Dose Admin Sodium Chloride 1,000 mls @ 999 mls/hr 07/19/18 12:17 07/19/18 12:57 Normal Saline IV 07/19/18 13:17 999 mls/hr STAT ONE Administration Ketorolac Tromethamine 30 mg 07/19/18 12:17 07/19/18 12:57 Toradol IVPUSH 07/19/18 12:18 30 mg ONETIME ONE Administration Ondansetron HCl 4 mg 07/19/18 12:17 07/19/18 12:57 Zofran IVPUSH 07/19/18 12:18 4 mg ONETIME ONE Administration Departure - Departure Time of Disposition: 14:30 Disposition: Home, Self-Care 01 Condition: Good Clinical Impression: Diverticulosis Abdominal pain Qualifiers: Abdominal location: lower abdomen, unspecified Qualified Code(s): R10.30 - Lower abdominal pain, unspecified - Discharge Information *PRESCRIPTION DRUG MONITORING PROGRAM REVIEWED*: Not Applicable *COPY OF PRESCRIPTION DRUG MONITORING REPORT IN PATIENT KIMBERLY: Not Applicable Referrals: PCP,None [Primary Care Provider] - Forms: ED Department Discharge Additional Instructions: The following information is given to patients seen in the emergency department who are being discharged to home. This information is to outline your options for follow-up care. We provide all patients seen in our emergency department with a follow-up referral. The need for follow-up, as well as the timing and circumstances, are variable depending upon the specifics of your emergency department visit. If you don't have a primary care physician on staff, we will provide you with a referral. We always advise you to contact your personal physician following an emergency department visit to inform them of the circumstance of the visit and for follow-up with them and/or the need for any referrals to a consulting specialist. The emergency department will also refer you to a specialist when appropriate. This referral assures that you have the opportunity for followup care with a specialist. All of these measure are taken in an effort to provide you with optimal care, which includes your followup. Under all circumstances we always encourage you to contact your private physician who remains a resource for coordinating your care. When calling for followup care, please make the office aware that this follow-up is from your recent emergency room visit. If for any reason you are refused follow-up, please contact the [facility] emergency department at and asked to speak to the emergency department charge nurse. [facility] Specialty Care - General Surgery Professional Building [address] [place] [address], [address] [place] [address] Clear liquids as discussed avoid dairy 72 hours follow-up primary medical doctor and/or general surgery as needed as discussed and return as needed as discussed
[2018-07-19 13:22] LABS: CHLORIDE,CL 108 mmol/L (98-107); SODIUM,NA 141 mmol/L (136-145)
--- NOTE | 2018-07-19 13:53 | CT ---
EXAM DATE: 07/19/18 PATIENT'S AGE: 48 Patient: LEONARDO TALAVERA Facility: [place], [place] Site . Site : [id number] Study: CT Abdomen ABD/PELVIS [id number]/26/2018 1:15:47 PM Ordering Physician: Stacey Lyles Final Report: Indication: Pain Technique: Noncontrast CT abdomen and pelvis coronal sagittal reformatted images obtained. Comparison: CT and pelvis 05/16/2017 Findings: Heart size is normal. Lung bases are clear. Unenhanced liver appears unremarkable gallbladder adrenal glands spleen pancreas is unremarkable. Normal caliber abdominal aorta. Kidneys are unremarkable. Gastric lap band device again present. Fluid in the stomach proximal to the lap band device. No inflammatory change or significant bowel wall thickening in the proximal stomach as previously seen. Pessary device. Urinary bladder decompressed. Partially fluid filled colon. No obstruction. No intra-abdominal or pelvic inflammatory change seen. Minimal diverticulosis. No suspicious bony lesions. Impression: 1. Partially fluid-filled colon which can be seen with any etiology of diarrhea. No acute findings in the abdomen or pelvis otherwise seen. 2. Diverticulosis. Please note that all CT scans at this facility use dose modulation, iterative reconstruction, and/or weight-based dosing when appropriate to reduce radiation dose to as low as reasonably achievable. Dictated by Yaneli Moon MD @ Jul 19 2018 1:37PM (Electronic Signature) Report Signed by Proxy. [facility]ITAL[facility]
[2018-07-19 14:50] VITALS: BP 103/64
== END 2018-07-19 14:43 | disposition home or self-care (01) ==
LOC: MW.ED 12:03
DX: K57.90 Diverticulosis of intestine, part unspecified, without perforation or abscess without bleeding (principal); Z88.2 Allergy status to sulfonamides; Z91.040 Latex allergy status; Z88.5 Allergy status to narcotic agent; Z88.8 Allergy status to other drugs, medicaments and biological substances
CPT/HCPCS: 36415; 74176; 80053; 81001; 83690; 84703; 85025; 85610; 96361; 96374; 96375; 99284; J1885; J2405; J7040

== ENCOUNTER 2018-11-03 10:21 | Emergency (ER) | payer MEDICAID, OTHER ==
[2018-11-03] MEDS ORDERED: Sodium Chloride 0.9% 10 ML Syringe FLUSH PRN (10:30)
[2018-11-03] MEDS ORDERED: Sodium Chloride 0.9% 1,000 ML IV ONE (10:30)
[2018-11-03] MEDS ORDERED: Sodium Chloride 0.9% 2.5 ML Syringe FLUSH PRN (10:30)
--- NOTE | 2018-11-03 10:44 | EDM.PDOC ---
ED HPI GENERAL MEDICAL PROBLEM - General Chief Complaint: Abdominal Pain Stated Complaint: STOMACH PAIN Time Seen by Provider: 11/03/18 10:38 Source of Information: Reports: Patient History Limitations: Reports: No Limitations - History of Present Illness INITIAL COMMENTS - FREE TEXT/NARRATIVE: HISTORY AND PHYSICAL: History of present illness: Patient is a 48-year-old female here with complaint of lower abdominal pain that started this morning. She states she was seen about 3 months ago with similar pain and diarrhea, was told she had diverticula and advised to follow up. She states she has been having looser stools recently, nonbloody. Denies fevers, nausea, vomiting, chest pain, SOB, urinary symptoms. She is seeing Dr. Morejon next week regarding the diverticula. Surgical history includes hysterectomy, appendectomy, and lap-band. Review of systems: As per history of present illness and below otherwise all systems reviewed and negative. Past medical history: As per history of present illness and as reviewed below otherwise noncontributory. Surgical history: As per history of present illness and as reviewed below otherwise noncontributory. Social history: No reported history of drug or alcohol abuse. Family history: As per history of present illness and as reviewed below otherwise noncontributory. Physical exam: General: Patient sitting comfortably in no acute distress and nontoxic appearing HEENT: Atraumatic, normocephalic, pupils reactive, negative for conjunctival pallor or scleral icterus, mucous membranes moist, throat clear, neck supple, nontender, trachea midline. No meningeal signs. Lungs: Clear to auscultation, breath sounds equal bilaterally, chest nontender. Heart: S1S2, regular, negative for clicks, rubs, or overt murmur. Abdomen: RLQ and LLQ tenderness to palpation. Soft, nondistended. Negative for masses or hepatosplenomegaly. Negative for costovertebral tenderness. Pelvis: Stable nontender. Genitourinary: Deferred. Rectal: Deferred. Extremities: Atraumatic, negative for cords or calf pain. Neurovascular unremarkable. Neuro: Awake, alert, oriented. Cranial nerves II through XII unremarkable. Cerebellum unremarkable. Motor and sensory unremarkable throughout. Exam nonfocal. Notes: Diagnostics: CBC, CMP, UA, lipase Therapeutics: 1L Normal Saline IV 2mg Morphine IV 25mg Benadryl IV Prescriptions: None Impression: Abdominal pain Plan: 1. Follow up with your primary care provider 2. Return to ED as needed as discussed Definitive disposition and diagnosis as appropriate pending reevaluation and review of above. abdominal Pain Score (Numeric/FACES): 10 - Related Data Allergies Allergy/AdvReac Type Severity Reaction Status Date / Time cyclobenzaprine HCl Allergy Intermediate Rash Verified 11/03/18 10:31 [From Flexeril] sulfamethoxazole Allergy Intermediate Hives Verified 11/03/18 10:31 [From Bactrim] trimethoprim [From Bactrim] Allergy Intermediate Hives Verified 11/03/18 10:31 codeine Allergy Swelling Verified 11/03/18 10:31 hydrocodone Allergy Swelling Verified 11/03/18 10:31 latex Allergy Respiratory Verified 11/03/18 10:31 Depression metronidazole [From Flagyl] Allergy Itching Verified 11/03/18 10:31 nitrofurantoin Allergy Rash Verified 11/03/18 10:31 [From Macrobid] nitrofurantoin Allergy Rash Verified 11/03/18 10:31 macrocrystalline [From Macrobid] Benzoine Allergy Hives Uncoded 03/18/15 13:54 Sulfa Allergy Hives Uncoded 03/18/15 13:54 Home Meds: Home Meds Estradiol Acetate [Femring] 1 each VG DAILY 03/19/15 [History] Docusate Sodium [Colace] 50 mg PO DAILY 11/03/18 [History] Past Medical History HEENT History: Reports: Impaired Vision Cardiovascular History: Reports: None Respiratory History: Reports: None Gastrointestinal History: Reports: Diverticulosis, GERD Genitourinary History: Reports: None VASCULAR NURSE History: Reports: Other (See Below) Other VASCULAR NURSE History: biopsy and mass removed from vagina Musculoskeletal History: Reports: None Neurological History: Reports: None Psychiatric History: Reports: None Endocrine/Metabolic History: Reports: None Hematologic History: Reports: None Immunologic History: Reports: None Oncologic (Cancer) History: Reports: None Dermatologic History: Reports: None - Past Surgical History Head Surgeries/Procedures: Reports: None HEENT Surgical History: Reports: None Cardiovascular Surgical History: Reports: None Respiratory Surgical History: Reports: None GI Surgical History: Reports: Other (See Below) Other GI Surgeries/Procedures: lab band Female Surgical History: Reports: None Endocrine Surgical History: Reports: None Neurological Surgical History: Reports: None Musculoskeletal Surgical History: Reports: Other (See Below) Other Musculoskeletal Surgeries/Procedures:: L knee surgery, R thumb surgery Oncologic Surgical History: Reports: None Dermatological Surgical History: Reports: None Social & Family History - Family History Family Medical History: Noncontributory - Tobacco Use Smoking Status *Q: Current Some Day Smoker Years of Tobacco use: 2 Packs/Tins Daily: 0.1 - Caffeine Use Caffeine Use: Reports: None - Recreational Drug Use Recreational Drug Use: Yes Recreational Drug Type: Reports: Marijuana/Hashish, Other (see below) Other Recreational Drug Type: medicla ED ROS GENERAL - Review of Systems Review Of Systems: ROS reveals no pertinent complaints other than HPI. ED EXAM, GI/ABD - Physical Exam Exam: See Below (See dictation) Course - Vital Signs Last Recorded V/S: Last Vital Signs Temp 96.9 F 11/03/18 10:32 Pulse 67 11/03/18 12:25 Resp 18 11/03/18 12:25 BP 101/59 L 11/03/18 12:25 Pulse Ox 100 11/03/18 12:25 - Orders/Labs/Meds Orders: Active Orders 24 hr Category Date Time Status Sodium Chloride 0.9% [Saline Flush] Med 11/03/18 10:30 Active 10 ml FLUSH ASDIRECTED PRN Sodium Chloride 0.9% [Saline Flush] Med 11/03/18 10:30 Active 2.5 ml FLUSH ASDIRECTED PRN Saline Lock Insert [OM.PC] Stat Oth 11/03/18 10:30 Ordered Medication Orders Sodium Chloride (Saline Flush) 10 ml FLUSH ASDIRECTED PRN PRN Reason: Keep Vein Open Sodium Chloride (Saline Flush) 2.5 ml FLUSH ASDIRECTED PRN PRN Reason: Keep Vein Open Labs: Laboratory Tests 11/03/18 11/03/18 11/03/18 Range/Units 10:50 10:50 12:28 WBC 7.06 (4.0-11.0) K/uL RBC 4.63 (4.30-5.90) M/uL Hgb 13.3 (12.0-16.0) g/dL Hct 40.7 (36.0-46.0) % MCV 87.9 (80.0-98.0) fL MCH 28.7 (27.0-32.0) pg MCHC 32.7 (31.0-37.0) g/dL RDW Std Deviation 43.8 (28.0-62.0) fl RDW Coeff of Vian[place] 14 (11.0-15.0) % Plt Count 362 (150-400) K/uL MPV 8.70 (7.40-12.00) fL Neut % (Auto) 72.2 (48.0-80.0) % Lymph % (Auto) 20.3 (16.0-40.0) % [place] % (Auto) 5.4 (0.0-15.0) % Eos % (Auto) 1.3 (0.0-7.0) % Baso % (Auto) 0.8 (0.0-1.5) % Neut # (Auto) 5.1 (1.4-5.7) K/uL Lymph # (Auto) 1.4 (0.6-2.4) K/uL [place] # (Auto) 0.4 (0.0-0.8) K/uL Eos # (Auto) 0.1 (0.0-0.7) K/uL Baso # (Auto) 0.1 (0.0-0.1) K/uL Nucleated RBC % 0.0 /100WBC Nucleated RBCs # 0 K/uL Sodium 141 (136-145) mmol/L Potassium 3.9 (3.5-5.1) mmol/L Chloride 105 (98-107) mmol/L Carbon Dioxide 28.9 (21.0-32.0) mmol/L BUN 20 H (7.0-18.0) mg/dL Creatinine 0.7 (0.6-1.0) mg/dL Est Cr Clr Drug Dosing 69.06 mL/min Estimated GFR (MDRD) > 60.0 ml/min Glucose 95 (74-106) mg/dL Calcium 9.1 (8.5-10.1) mg/dL Total Bilirubin 0.3 (0.2-1.0) mg/dL AST 18 (15-37) IU/L ALT 18 (14-63) IU/L Alkaline Phosphatase 72 (46-116) U/L Total Protein 7.4 (6.4-8.2) g/dL Albumin 3.7 (3.4-5.0) g/dL Globulin 3.7 (2.6-4.0) g/dL Albumin/Globulin Ratio 1.0 (0.9-1.6) Lipase 110 (73-393) U/L Urine Color YELLOW Urine Appearance CLEAR Urine pH 6.5 (5.0-8.0) Ur Specific [place] <= 1.005 (1.001-1.035) Urine Protein NEGATIVE (NEGATIVE) mg/dL Urine Glucose (UA) NEGATIVE (NEGATIVE) mg/dL Urine Ketones NEGATIVE (NEGATIVE) mg/dL Urine Occult Blood NEGATIVE (NEGATIVE) Urine Nitrite NEGATIVE (NEGATIVE) Urine Bilirubin NEGATIVE (NEGATIVE) Urine Urobilinogen 0.2 (<2.0) EU/dL Ur Leukocyte Esterase NEGATIVE (NEGATIVE) Urine RBC NONE SEEN (0-2/HPF) Urine WBC NONE SEEN (0-5/HPF) Ur Epithelial Cells RARE (NONE-FEW) Urine Bacteria RARE (NEGATIVE) Meds: Medications Generic Name Dose Route Start Last Admin Trade Name Freq PRN Reason Stop Dose Admin Sodium Chloride 10 ml 11/03/18 10:30 Saline Flush FLUSH ASDIRECTED PRN Keep Vein Open Sodium Chloride 2.5 ml 11/03/18 10:30 Saline Flush FLUSH ASDIRECTED PRN Keep Vein Open Discontinued Medications Generic Name Dose Route Start Last Admin Trade Name Freq PRN Reason Stop Dose Admin Diphenhydramine HCl 25 mg 11/03/18 10:59 11/03/18 11:06 Benadryl IVPUSH 11/03/18 11:00 25 mg ONETIME ONE Administration Diphenhydramine HCl 25 mg 11/03/18 12:15 11/03/18 12:19 Benadryl IVPUSH 11/03/18 12:16 25 mg ONETIME ONE Administration Sodium Chloride 1,000 mls @ 999 mls/hr 11/03/18 10:30 11/03/18 10:50 Normal Saline IV 11/03/18 11:30 999 mls/hr STAT ONE Administration Iopamidol 100 ml 11/03/18 12:03 11/03/18 12:03 Isovue Multipack-370 (76%) IVPUSH 11/03/18 12:04 100 ml ONETIME STA Administration Morphine Sulfate 2 mg 11/03/18 10:59 11/03/18 11:06 Morphine IVPUSH 11/03/18 11:00 2 mg ONETIME ONE Administration Morphine Sulfate 2 mg 11/03/18 12:04 11/03/18 12:19 Morphine IVPUSH 11/03/18 12:05 2 mg ONETIME ONE Administration Departure - Departure Time of Disposition: 13:17 Disposition: Home, Self-Care 01 Condition: Good Clinical Impression: Abdominal pain Qualifiers: Abdominal location: lower abdomen, unspecified Qualified Code(s): R10.30 - Lower abdominal pain, unspecified - Discharge Information Referrals: PCP,None [Primary Care Provider] - Forms: ED Department Discharge Additional Instructions: The following information is given to patients seen in the emergency department who are being discharged to home. This information is to outline your options for follow-up care. We provide all patients seen in our emergency department with a follow-up referral. The need for follow-up, as well as the timing and circumstances, are variable depending upon the specifics of your emergency department visit. If you don't have a primary care physician on staff, we will provide you with a referral. We always advise you to contact your personal physician following an emergency department visit to inform them of the circumstance of the visit and for follow-up with them and/or the need for any referrals to a consulting specialist. The emergency department will also refer you to a specialist when appropriate. This referral assures that you have the opportunity for follow-up care with a specialist. All of these measure are taken in an effort to provide you with optimal care, which includes your follow-up. Under all circumstances we always encourage you to contact your private physician who remains a resource for coordinating your care. When calling for follow-up care, please make the office aware that this follow-up is from your recent emergency room visit. If for any reason you are refused follow-up, please contact the [facility] Emergency Department at and asked to speak to the emergency department charge nurse. [address] [address] 1. Follow up with your primary care provider 2. Return to ED as needed as discussed - My Orders Last 24 Hours: My Active Orders 11/03/18 10:30 Sodium Chloride 0.9% [Saline Flush] 10 ml FLUSH ASDIRECTED PRN Sodium Chloride 0.9% [Saline Flush] 2.5 ml FLUSH ASDIRECTED PRN Saline Lock Insert [OM.PC] Stat - Assessment/Plan Last 24 Hours: My Active Orders 11/03/18 10:30 Sodium Chloride 0.9% [Saline Flush] 10 ml FLUSH ASDIRECTED PRN Sodium Chloride 0.9% [Saline Flush] 2.5 ml FLUSH ASDIRECTED PRN Saline Lock Insert [OM.PC] Stat
[2018-11-03] MEDS ORDERED: diphenhydrAMINE 50 MG/ML SDV IVPUSH ONE ×2 (10:59→12:15)
[2018-11-03] MEDS ORDERED: Morphine 2 MG/ML Syringe IVPUSH ONE ×2 (10:59→12:04)
[2018-11-03 11:25] LABS: CHLORIDE,CL 105 mmol/L (98-107); SODIUM,NA 141 mmol/L (136-145)
[2018-11-03] MEDS ORDERED: Iopamidol 755 MG/ML 500 ML Multipack Bottle IVPUSH STA (12:03)
[2018-11-03 12:25] VITALS: BP 101/59
--- NOTE | 2018-11-03 13:10 | CT ---
CT of the abdomen and pelvis with contrast. HISTORY: Pain TECHNIQUE: Axial CT images were obtained of the abdomen and pelvis following administration of 100 mL of Isovue-370 in the right antecubital fossa without complication. Coronal and sagittal reconstructions obtained. FINDINGS: The lung bases are clear, no pleural effusion. Tiny hypodensity within the left hepatic lobe, decreased in size. There is a lap band noted. The spleen, adrenal glands, and pancreas appear normal. The gallbladder is normal. The kidneys enhance and function symmetrically without evidence of obstructive uropathy. The large and small bowel are normal in caliber without evidence of obstruction. No focal pericolonic inflammation or stranding. A pessary device is noted. Urinary bladder is minimally filled. No bulky pelvic lymphadenopathy or free pelvic fluid. No suspicious osseous abnormalities identified. IMPRESSION: 1. No acute findings noted within the abdomen or pelvis.
== END 2018-11-03 13:28 | disposition home or self-care (01) ==
LOC: MW.ED 10:21
DX: R10.30 Lower abdominal pain, unspecified (principal); F17.210 Nicotine dependence, cigarettes, uncomplicated; K21.9 Gastro-esophageal reflux disease without esophagitis; Z79.899 Other long term (current) drug therapy; Z88.2 Allergy status to sulfonamides; Z88.8 Allergy status to other drugs, medicaments and biological substances; Z91.040 Latex allergy status; Z88.6 Allergy status to analgesic agent; Z88.5 Allergy status to narcotic agent
CPT/HCPCS: 36415; 74177; 80053; 81001; 83690; 85025; 96361; 96374; 96375; 96376; 99284; J1200; J2270; J7040; Q9967

== ENCOUNTER 2019-04-30 13:06 | Emergency (ER) | payer OTHER ==
[2019-04-30] MEDS ORDERED: Sodium Chloride 0.9% 1,000 ML IV ONE (13:37)
[2019-04-30] MEDS ORDERED: Ketorolac 30 MG/ML SDV IVPUSH ONE (13:38)
[2019-04-30] MEDS ORDERED: Ondansetron 4 MG/2 ML SDV IVPUSH ONE (13:38)
--- NOTE | 2019-04-30 13:51 | EDM.PDOC ---
ED HPI GENERAL MEDICAL PROBLEM - General Chief Complaint: Gastrointestinal Problem Stated Complaint: STOMACH PAIN Time Seen by Provider: 04/30/19 13:26 Source of Information: Reports: Patient History Limitations: Reports: No Limitations - History of Present Illness INITIAL COMMENTS - FREE TEXT/NARRATIVE: HISTORY AND PHYSICAL: History of present illness: Patient is a 48-year-old female who presents to the ED today with concern of lower abdominal pain over the past few days. Patient states she feels as if her abdomen is distended. Patient states that she has been having chronic issues with constipation and follows with a GI specialist in [place]. Patient states that she has had a recent colonoscopy and several other workups with a GI specialist that were negative. Patient states she hasn't been able to have a bowel movement in almost a week and feels like she cannot pass gas. Patient states she has had numerous episodes of vomiting but also has a lap band so is not sure if this is new or due to her lap band. Patient states she has used over -the-counter MiraLAX as well as multiple other agents but has not been able to have a bowel movement and only has had increasing distention and pain. Patient states she has a history of 2 episodes of diverticulitis in the past. Patient denies fever, chills, chest pain, shortness of breath, or cough. Denies headache, neck stiff ness, change in vision, syncope, or near syncope. Denies nausea, vomiting, abdominal pain, diarrhea, constipation, or dysuria. Has not noted any blood in urine or stool. Patient has been eating and drinking appropriately. Review of systems: As per history of present illness and below otherwise all systems reviewed and negative. Past medical history: As per history of present illness and as reviewed below otherwise noncontributory. Surgical history: As per history of present illness and as reviewed below otherwise noncontributory. Social history: See social history for further information Family history: As per history of present illness and as reviewed below otherwise noncontributory. Physical exam: General: Patient is alert, oriented, and in no acute distress. Patient sitting comfortably on exam table. HEENT: Atraumatic, normocephalic, pupils equal and reactive bilaterally, negative for conjunctival pallor or scleral icterus, mucous membranes dry, TMs normal bilaterally, throat clear, neck supple, nontender, trachea midline. No drooling or trismus noted. No meningeal signs. No hot potato voice noted. Lungs: Clear to auscultation, breath sounds equal bilaterally, chest nontender. Heart: S1S2, regular rate and rhythm without overt murmur Abdomen: Exam of abdomen is limited due to pain. Severe pain with palpation of the lower abdomen with guarding. Soft, distended. Negative for masses or hepatosplenomegaly. Negative for costovertebral tenderness. Pelvis: Stable nontender. Genitourinary: Deferred. Rectal: Deferred. Skin: Intact, warm, dry. No lesions or rashes noted. Extremities: Atraumatic, negative for cords or calf pain. Neurovascular unremarkable. Neuro: Awake, alert, oriented. Cranial nerves II through XII unremarkable. Cerebellum unremarkable. Motor and sensory unremarkable throughout. Exam nonfocal. Notes: Discussed [id number] treatments with patient for her constipation. Voices understanding and is agreeable to plan of care. Denies any further questions or concerns at this time. Diagnostics: EKG, CBC, CMP, UA, Uhcg, Lipase, Abd/Pelvic CT with contrast Therapeutics: NS, Zofran, Toradol, Protonix Prescription: None Impression: Constipation Abdominal pain Plan: 1. Use [id number] medications to promote bowel movements as discussed. You can alternate ibuprofen and Tylenol as discussed. 2. Follow-up with your GI specialist and her primary care provider as discussed. Return to the ED as needed and as discussed. Definitive disposition and diagnosis as appropriate pending reevaluation and review of above. Abdominal Pain Score (Numeric/FACES): 7 - Related Data Allergies Allergy/AdvReac Type Severity Reaction Status Date / Time cyclobenzaprine HCl Allergy Intermediate Rash Verified 04/30/19 13:19 [From Flexeril] sulfamethoxazole Allergy Intermediate Hives Verified 04/30/19 13:19 [From Bactrim] trimethoprim [From Bactrim] Allergy Intermediate Hives Verified 04/30/19 13:19 codeine Allergy Swelling Verified 04/30/19 13:19 hydrocodone Allergy Swelling Verified 04/30/19 13:19 latex Allergy Respiratory Verified 04/30/19 13:19 Depression metronidazole [From Flagyl] Allergy Itching Verified 04/30/19 13:19 nitrofurantoin Allergy Rash Verified 04/30/19 13:19 [From Macrobid] nitrofurantoin Allergy Rash Verified 04/30/19 13:19 macrocrystalline [From Macrobid] Benzoine Allergy Hives Uncoded 03/18/15 13:54 Sulfa Allergy Hives Uncoded 03/18/15 13:54 Home Meds: Home Meds Estradiol Acetate [Femring] 1 each VG DAILY 03/19/15 [History] Docusate Sodium [Colace] 50 mg PO BID 11/03/18 [History] Linaclotide [Linzess] 145 mg PO DAILY 04/30/19 [History] Peppermint Oil [Pepogest] 1 cap PO BID 04/30/19 [History] Polyethylene Glycol 3350 [MiraLAX] 17 gram PO BID 04/30/19 [History] Past Medical History HEENT History: Reports: Impaired Vision Cardiovascular History: Reports: None Respiratory History: Reports: None Gastrointestinal History: Reports: Chronic Constipation, Diverticulosis, GERD, Irritable Bowel Syndrome Genitourinary History: Reports: None PRIVATE DUTY NURSE History: Reports: Other (See Below) Other PRIVATE DUTY NURSE History: biopsy and mass removed from vagina Musculoskeletal History: Reports: None Neurological History: Reports: None Psychiatric History: Reports: None Endocrine/Metabolic History: Reports: None Hematologic History: Reports: None Immunologic History: Reports: None Oncologic (Cancer) History: Reports: None Dermatologic History: Reports: None - Infectious Disease History Infectious Disease History: Reports: Chicken Pox, Measles, Mumps - Past Surgical History Head Surgeries/Procedures: Reports: None HEENT Surgical History: Reports: None Cardiovascular Surgical History: Reports: None Respiratory Surgical History: Reports: None GI Surgical History: Reports: Other (See Below) Other GI Surgeries/Procedures: lap band Female Surgical History: Reports: None Endocrine Surgical History: Reports: None Neurological Surgical History: Reports: None Musculoskeletal Surgical History: Reports: Other (See Below) Other Musculoskeletal Surgeries/Procedures:: L knee surgery, R thumb surgery Oncologic Surgical History: Reports: None Dermatological Surgical History: Reports: None Social & Family History - Family History Family Medical History: Noncontributory - Tobacco Use Smoking Status *Q: Current Every Day Smoker Years of Tobacco use: 40 Packs/Tins Daily: 0.5 - Caffeine Use Caffeine Use: Reports: None - Recreational Drug Use Recreational Drug Use: No ED ROS GENERAL - Review of Systems Review Of Systems: ROS reveals no pertinent complaints other than HPI. ED EXAM, GENERAL - Physical Exam Exam: See Below (see dictation) Course - Vital Signs Last Recorded V/S: Last Vital Signs Temp 36.2 C 04/30/19 13:16 Pulse 79 04/30/19 13:16 Resp 18 04/30/19 13:16 BP 130/70 04/30/19 13:16 Pulse Ox 99 04/30/19 13:16 - Orders/Labs/Meds Orders: Active Orders 24 hr Category Date Time Status EKG Documentation Completion [RC] STAT Care 04/30/19 13:44 Active Labs: Laboratory Tests 04/30/19 04/30/19 04/30/19 Range/Units 13:54 13:54 13:54 WBC 8.42 (4.0-11.0) K/uL RBC 4.34 (4.30-5.90) M/uL Hgb 11.6 L (12.0-16.0) g/dL Hct 36.7 (36.0-46.0) % MCV 84.6 (80.0-98.0) fL MCH 26.7 L (27.0-32.0) pg MCHC 31.6 (31.0-37.0) g/dL RDW Std Deviation 46.3 (28.0-62.0) fl RDW Coeff of [place] 15 (11.0-15.0) % Plt Count 323 (150-400) K/uL MPV 8.60 (7.40-12.00) fL Neut % (Auto) 66.2 (48.0-80.0) % Lymph % (Auto) 24.0 (16.0-40.0) % [place] % (Auto) 6.2 (0.0-15.0) % Eos % (Auto) 3.0 (0.0-7.0) % Baso % (Auto) 0.6 (0.0-1.5) % Neut # (Auto) 5.6 (1.4-5.7) K/uL Lymph # (Auto) 2.0 (0.6-2.4) K/uL [place] # (Auto) 0.5 (0.0-0.8) K/uL Eos # (Auto) 0.3 (0.0-0.7) K/uL Baso # (Auto) 0.1 (0.0-0.1) K/uL Nucleated RBC % 0.0 /100WBC Nucleated RBCs # 0 K/uL Sodium 141 (136-145) mmol/L Potassium 4.0 (3.5-5.1) mmol/L Chloride 104 (98-107) mmol/L Carbon Dioxide 29.3 (21.0-32.0) mmol/L BUN 15 (7.0-18.0) mg/dL Creatinine 0.6 (0.6-1.0) mg/dL Est Cr Clr Drug Dosing 80.57 mL/min Estimated GFR (MDRD) > 60.0 ml/min Glucose 86 (74-106) mg/dL Calcium 8.7 (8.5-10.1) mg/dL Total Bilirubin 0.2 (0.2-1.0) mg/dL AST 19 (15-37) IU/L ALT 18 (14-63) IU/L Alkaline Phosphatase 67 (46-116) U/L Total Protein 7.1 (6.4-8.2) g/dL Albumin 3.8 (3.4-5.0) g/dL Globulin 3.3 (2.6-4.0) g/dL Albumin/Globulin Ratio 1.2 (0.9-1.6) Lipase 109 (73-393) U/L Urine Color YELLOW Urine Appearance CLEAR Urine pH 7.5 (5.0-8.0) Ur Specific [place] 1.010 (1.001-1.035) Urine Protein NEGATIVE (NEGATIVE) mg/dL Urine Glucose (UA) NEGATIVE (NEGATIVE) mg/dL Urine Ketones NEGATIVE (NEGATIVE) mg/dL Urine Occult Blood NEGATIVE (NEGATIVE) Urine Nitrite NEGATIVE (NEGATIVE) Urine Bilirubin NEGATIVE (NEGATIVE) Urine Urobilinogen 0.2 (<2.0) EU/dL Ur Leukocyte Esterase NEGATIVE (NEGATIVE) Urine HCG, Qual (NEGATIVE) 04/30/19 Range/Units 13:54 WBC (4.0-11.0) K/uL RBC (4.30-5.90) M/uL Hgb (12.0-16.0) g/dL Hct (36.0-46.0) % MCV (80.0-98.0) fL MCH (27.0-32.0) pg MCHC (31.0-37.0) g/dL RDW Std Deviation (28.0-62.0) fl RDW Coeff of [place] (11.0-15.0) % Plt Count (150-400) K/uL MPV (7.40-12.00) fL Neut % (Auto) (48.0-80.0) % Lymph % (Auto) (16.0-40.0) % [place] % (Auto) (0.0-15.0) % Eos % (Auto) (0.0-7.0) % Baso % (Auto) (0.0-1.5) % Neut # (Auto) (1.4-5.7) K/uL Lymph # (Auto) (0.6-2.4) K/uL [place] # (Auto) (0.0-0.8) K/uL Eos # (Auto) (0.0-0.7) K/uL Baso # (Auto) (0.0-0.1) K/uL Nucleated RBC % /100WBC Nucleated RBCs # K/uL Sodium (136-145) mmol/L Potassium (3.5-5.1) mmol/L Chloride (98-107) mmol/L Carbon Dioxide (21.0-32.0) mmol/L BUN (7.0-18.0) mg/dL Creatinine (0.6-1.0) mg/dL Est Cr Clr Drug Dosing mL/min Estimated GFR (MDRD) ml/min Glucose (74-106) mg/dL Calcium (8.5-10.1) mg/dL Total Bilirubin (0.2-1.0) mg/dL AST (15-37) IU/L ALT (14-63) IU/L Alkaline Phosphatase (46-116) U/L Total Protein (6.4-8.2) g/dL Albumin (3.4-5.0) g/dL Globulin (2.6-4.0) g/dL Albumin/Globulin Ratio (0.9-1.6) Lipase (73-393) U/L Urine Color Urine Appearance Urine pH (5.0-8.0) Ur Specific [place] (1.001-1.035) Urine Protein (NEGATIVE) mg/dL Urine Glucose (UA) (NEGATIVE) mg/dL Urine Ketones (NEGATIVE) mg/dL Urine Occult Blood (NEGATIVE) Urine Nitrite (NEGATIVE) Urine Bilirubin (NEGATIVE) Urine Urobilinogen (<2.0) EU/dL Ur Leukocyte Esterase (NEGATIVE) Urine HCG, Qual NEGATIVE (NEGATIVE) Meds: Medications Discontinued Medications Generic Name Dose Route Start Last Admin Trade Name Vy PRN Reason Stop Dose Admin Sodium Chloride 1,000 mls @ 999 mls/hr 04/30/19 13:37 04/30/19 13:54 Normal Saline IV 04/30/19 14:37 999 mls/hr BOLUS ONE Administration Sodium Chloride Confirm 04/30/19 14:28 Normal Saline Administered 04/30/19 14:29 Dose 20 mls @ as directed .ROUTE .STK-MED ONE Iopamidol 65 ml 04/30/19 15:21 04/30/19 15:21 Isovue Multipack-370 (76%) IVPUSH 04/30/19 15:22 65 ml ONETIME ONE Administration Ketorolac Tromethamine 30 mg 04/30/19 13:38 04/30/19 13:54 Toradol IVPUSH 04/30/19 13:39 30 mg ONETIME ONE Administration Ondansetron HCl 4 mg 04/30/19 13:38 04/30/19 13:54 Zofran IVPUSH 04/30/19 13:39 4 mg ONETIME ONE Administration Pantoprazole Sodium 80 mg 04/30/19 14:10 04/30/19 14:32 Protonix Iv IVPUSH 04/30/19 14:11 80 mg .BOLUS ONE Administration Departure - Departure Time of Disposition: 15:54 Disposition: Home, Self-Care 01 Clinical Impression: Abdominal pain Qualifiers: Abdominal location: unspecified location Qualified Code(s): R10.9 - Unspecified abdominal pain Constipation Qualifiers: Constipation type: unspecified constipation type Qualified Code(s): K59.00 - Constipation, unspecified - Discharge Information Instructions: Constipation, Adult Forms: ED Department Discharge Additional Instructions: The following information is given to patients seen in the emergency department who are being discharged to home. This information is to outline your options for follow-up care. We provide all patients seen in our emergency department with a follow-up referral. The need for follow-up, as well as the timing and circumstances, are variable depending upon the specifics of your emergency department visit. If you don't have a primary care physician on staff, we will provide you with a referral. We always advise you to contact your personal physician following an emergency department visit to inform them of the circumstance of the visit and for follow-up with them and/or the need for any referrals to a consulting specialist. The emergency department will also refer you to a specialist when appropriate. This referral assures that you have the opportunity for follow-up care with a specialist. All of these measure are taken in an effort to provide you with optimal care, which includes your follow-up. Under all circumstances we always encourage you to contact your private physician who remains a resource for coordinating your care. When calling for follow-up care, please make the office aware that this follow-up is from your recent emergency room visit. If for any reason you are refused follow-up, please contact the [facility] at and asked to speak to the emergency department charge nurse. [facility] [address] [place] [id number] [facility] [address] [place] [address] 1. Use [id number] medications to promote bowel movements as discussed. You can alternate ibuprofen and Tylenol as discussed. 2. Follow-up with your GI specialist and her primary care provider as discussed. Return to the ED as needed and as discussed. - My Orders Last 24 Hours: My Active Orders 04/30/19 13:44 EKG Documentation Completion [RC] STAT - Assessment/Plan Last 24 Hours: My Active Orders 04/30/19 13:44 EKG Documentation Completion [RC] STAT
[2019-04-30] MEDS ORDERED: Pantoprazole 40 MG Vial IVPUSH ONE (14:10)
[2019-04-30] MEDS ORDERED: Sodium Chloride 0.9% 20 ML ONE (14:28)
[2019-04-30 14:39] LABS: CHLORIDE,CL 104 mmol/L (98-107); SODIUM,NA 141 mmol/L (136-145)
[2019-04-30] MEDS ORDERED: Iopamidol 755 MG/ML 500 ML Multipack Bottle IVPUSH ONE (15:21)
--- NOTE | 2019-04-30 15:31 | CT ---
CT of the abdomen and pelvis with contrast. HISTORY: Pain TECHNIQUE: Axial CT images were obtained of the abdomen and pelvis following administration of 65 mL of Isovue-370 in the left antecubital fossa without complication. Coronal and sagittal reconstructions obtained. Comparison: 11/03/2018, 05/16/2017 FINDINGS: Several stable tiny subpleural nodules noted bilaterally. The liver demonstrates a few tiny cysts. There is a lap band noted. The spleen, adrenal glands, and pancreas appear normal. The gallbladder is normal. There is no bulky retroperitoneal lymphadenopathy or abdominal ascites. The kidneys enhance and function symmetrically without evidence of obstructive uropathy. The large and small bowel are normal in caliber without evidence of obstruction. No focal pericolonic inflammation or stranding. A pessary device is noted. No bulky pelvic lymphadenopathy. There are bladder is normal. Appendectomy. No suspicious osseous abnormalities identified. IMPRESSION: 1. No definite acute finding noted within the abdomen or pelvis.
[2019-04-30 16:11] VITALS: BP 110/69
== END 2019-04-30 16:10 | disposition home or self-care (01) ==
LOC: MW.ED 13:06
DX: K59.00 Constipation, unspecified (principal); F17.210 Nicotine dependence, cigarettes, uncomplicated; Z79.899 Other long term (current) drug therapy; Z88.2 Allergy status to sulfonamides; Z88.5 Allergy status to narcotic agent; Z88.1 Allergy status to other antibiotic agents; Z91.040 Latex allergy status; Z88.8 Allergy status to other drugs, medicaments and biological substances
CPT/HCPCS: 36415; 74177; 80053; 81003; 81025; 83690; 85025; 93005; 96361; 96374; 96375; 99284; C9113; J1885; J2405; J7040; Q9967

== ENCOUNTER 2020-09-15 12:10 | Emergency (ER) | payer BC ==
[2020-09-15] MEDS ORDERED: Morphine 4 MG/ML Syringe IM ONE (12:26)
[2020-09-15] MEDS ORDERED: Sodium Chloride 0.9% 2.5 ML Syringe FLUSH PRN (12:26)
[2020-09-15] MEDS ORDERED: Sodium Chloride 0.9% 10 ML Syringe FLUSH PRN (12:26)
[2020-09-15] MEDS ORDERED: Sodium Chloride 0.9% 1,000 ML IV ONE (12:26)
--- NOTE | 2020-09-15 12:30 | EDM.PDOC ---
ED HPI GENERAL MEDICAL PROBLEM - General Chief Complaint: Abdominal Pain Stated Complaint: chest and abdominal pain Time Seen by Provider: 09/15/20 12:28 Source of Information: Reports: Patient History Limitations: Reports: No Limitations - History of Present Illness INITIAL COMMENTS - FREE TEXT/NARRATIVE: Patient is a 50-year-old female who presents today for abdominal pain. Patient has history of IBS and states that 6 PM last night she started developed abdominal pain that was diffuse and did not radiate. Pain is worse with eating. Patient denies any diarrhea or vomiting. Patient denies any fever chills shortness of breath. Patient denies any chest pain on examination. lower abdomen Pain Score (Numeric/FACES): 10 - Related Data Allergies Allergy/AdvReac Type Severity Reaction Status Date / Time cyclobenzaprine HCl Allergy Intermediate Rash Verified 09/15/20 12:15 [From Flexeril] sulfamethoxazole Allergy Intermediate Hives Verified 09/15/20 12:15 [From Bactrim] trimethoprim [From Bactrim] Allergy Intermediate Hives Verified 09/15/20 12:15 codeine Allergy Swelling Verified 09/15/20 12:15 hydrocodone Allergy Swelling Verified 09/15/20 12:15 latex Allergy Respiratory Verified 09/15/20 12:15 Depression metronidazole [From Flagyl] Allergy Itching Verified 09/15/20 12:15 nitrofurantoin Allergy Rash Verified 09/15/20 12:15 [From Macrobid] nitrofurantoin Allergy Rash Verified 09/15/20 12:15 macrocrystalline [From Macrobid] Benzoine Allergy Hives Uncoded 09/15/20 12:15 Sulfa Allergy Hives Uncoded 09/15/20 12:15 Home Meds: Home Meds Estradiol Acetate [Femring] 1 each VG ASDIRECTED 03/19/15 [History] Linaclotide [Linzess] 145 mg PO ASDIRECTED 04/30/19 [History] Ciprofloxacin HCl [Cipro] 500 mg PO BID 5 Days #10 tablet 09/15/20 [Rx] Past Medical History HEENT History: Reports: Impaired Vision Cardiovascular History: Reports: None Respiratory History: Reports: None Gastrointestinal History: Reports: Chronic Constipation, Diverticulosis, GERD, Irritable Bowel Syndrome Genitourinary History: Reports: None DIRECTOR OF TESTING History: Reports: Other (See Below) Other DIRECTOR OF TESTING History: biopsy and mass removed from vagina Musculoskeletal History: Reports: None Neurological History: Reports: None Psychiatric History: Reports: None Endocrine/Metabolic History: Reports: None Hematologic History: Reports: None Immunologic History: Reports: None Oncologic (Cancer) History: Reports: None Dermatologic History: Reports: None - Infectious Disease History Infectious Disease History: Reports: Chicken Pox, Measles, Mumps - Past Surgical History Head Surgeries/Procedures: Reports: None HEENT Surgical History: Reports: None Cardiovascular Surgical History: Reports: None Respiratory Surgical History: Reports: None GI Surgical History: Reports: Other (See Below) Other GI Surgeries/Procedures: lap band Female Surgical History: Reports: None Endocrine Surgical History: Reports: None Neurological Surgical History: Reports: None Musculoskeletal Surgical History: Reports: Other (See Below) Other Musculoskeletal Surgeries/Procedures:: L knee surgery, R thumb surgery, Bunion R Oncologic Surgical History: Reports: None Dermatological Surgical History: Reports: None Social & Family History - Family History Family Medical History: No Pertinent Family History - Tobacco Use Tobacco Use Status *Q: Current Every Day Tobacco User Years of Tobacco use: 40 Packs/Tins Daily: 0.5 - Caffeine Use Caffeine Use: Reports: None - Recreational Drug Use Recreational Drug Use: Yes Drug Use in Last 12 Months: Yes Recreational Drug Type: Reports: Marijuana/Hashish Recreational Drug Use Frequency: Daily ED ROS GENERAL - Review of Systems Review Of Systems: See Below Constitutional: Reports: No Symptoms HEENT: Reports: No Symptoms Respiratory: Reports: No Symptoms Cardiovascular: Reports: No Symptoms Endocrine: Reports: No Symptoms GI/Abdominal: Reports: Abdominal Pain : Reports: No Symptoms Musculoskeletal: Reports: No Symptoms Skin: Reports: No Symptoms Neurological: Reports: No Symptoms Psychiatric: Reports: No Symptoms Hematologic/Lymphatic: Reports: No Symptoms Immunologic: Reports: No Symptoms ED EXAM, GENERAL - Physical Exam Exam: See Below Exam Limited By: No Limitations General Appearance: Alert, No Apparent Distress Eye Exam: Bilateral Eye: EOMI, PERRL Respiratory/Chest: No Respiratory Distress, Lungs Clear Cardiovascular: Normal Peripheral Pulses, Regular Rate, Rhythm GI/Abdominal: Normal Bowel Sounds, Soft, Tender Extremities: Normal Range of Motion Neurological: Alert, Oriented, CN II-XII Intact, Normal Cognition #1 Interpretation EKG Date: 09/15/20 Time: 12:15 Rhythm: NSR Rate (Beats/Min): 71 ST-T: Normal Course - Vital Signs Last Recorded V/S: Last Vital Signs Temp 98 F 09/15/20 12:11 Pulse 71 09/15/20 14:57 Resp 20 09/15/20 14:57 BP 104/57 L 09/15/20 14:57 Pulse Ox 97 09/15/20 14:57 - Orders/Labs/Meds Orders: Active Orders 24 hr Category Date Time Status EKG Documentation Completion [RC] STAT Care 09/15/20 12:13 Active Sodium Chloride 0.9% [Saline Flush] Med 09/15/20 12:26 Active 10 ml FLUSH ASDIRECTED PRN Sodium Chloride 0.9% [Saline Flush] Med 09/15/20 12:26 Active 2.5 ml FLUSH ASDIRECTED PRN Saline Lock Insert [OM.PC] Stat Oth 09/15/20 12:26 Ordered Medication Orders Sodium Chloride (Saline Flush) 10 ml FLUSH ASDIRECTED PRN PRN Reason: Keep Vein Open Last Admin: 09/15/20 12:51 Dose: 10 ml Documented by: NATALI Sodium Chloride (Saline Flush) 2.5 ml FLUSH ASDIRECTED PRN PRN Reason: Keep Vein Open Last Admin: 09/15/20 12:52 Dose: 2.5 ml Documented by: NATALI Labs: Laboratory Tests 09/15/20 09/15/20 09/15/20 Range/Units 12:05 12:18 12:18 WBC 11.49 H (4.0-11.0) K/uL RBC 4.66 (4.30-5.90) M/uL Hgb 12.7 (12.0-16.0) g/dL Hct 39.0 (36.0-46.0) % MCV 83.7 (80.0-98.0) fL MCH 27.3 (27.0-32.0) pg MCHC 32.6 (31.0-37.0) g/dL RDW Std Deviation 44.9 (28.0-62.0) fl RDW Coeff of [place] 15 (11.0-15.0) % Plt Count 389 (150-400) K/uL MPV 9.10 (7.40-12.00) fL Neut % (Auto) 71.1 (48.0-80.0) % Lymph % (Auto) 19.1 (16.0-40.0) % [place] % (Auto) 8.6 (0.0-15.0) % Eos % (Auto) 0.9 (0.0-7.0) % Baso % (Auto) 0.3 (0.0-1.5) % Neut # (Auto) 8.2 H (1.4-5.7) K/uL Lymph # (Auto) 2.2 (0.6-2.4) K/uL [place] # (Auto) 1.0 H (0.0-0.8) K/uL Eos # (Auto) 0.1 (0.0-0.7) K/uL Baso # (Auto) 0.0 (0.0-0.1) K/uL Nucleated RBC % 0.0 /100WBC Nucleated RBCs # 0 K/uL Sodium 139 (136-145) mmol/L Potassium 3.5 (3.5-5.1) mmol/L Chloride 102 (98-107) mmol/L Carbon Dioxide 25.3 (21.0-32.0) mmol/L BUN 13 (7.0-18.0) mg/dL Creatinine 0.8 (0.6-1.0) mg/dL Est Cr Clr Drug Dosing 59.09 mL/min Estimated GFR (MDRD) > 60.0 ml/min Glucose 112 H (74-106) mg/dL Calcium 8.9 (8.5-10.1) mg/dL Total Bilirubin 0.4 (0.2-1.0) mg/dL AST 19 (15-37) IU/L ALT 20 (14-63) IU/L Alkaline Phosphatase 102 (46-116) U/L Troponin I < 0.050 (0.000-0.056) ng/mL Total Protein 7.3 (6.4-8.2) g/dL Albumin 3.7 (3.4-5.0) g/dL Globulin 3.6 (2.6-4.0) g/dL Albumin/Globulin Ratio 1.0 (0.9-1.6) Lipase 66 L (73-393) U/L Urine Color Urine Appearance Urine pH (5.0-8.0) Ur Specific [place] (1.001-1.035) Urine Protein (NEGATIVE) mg/dL Urine Glucose (UA) (NEGATIVE) mg/dL Urine Ketones (NEGATIVE) mg/dL Urine Occult Blood (NEGATIVE) Urine Nitrite (NEGATIVE) Urine Bilirubin (NEGATIVE) Urine Urobilinogen (<2.0) EU/dL Ur Leukocyte Esterase (NEGATIVE) Urine RBC (0-2/HPF) Urine WBC (0-5/HPF) Ur Epithelial Cells (NONE-FEW) Amorphous Sediment (NEGATIVE) Urine Bacteria (NEGATIVE) Urine Mucus (NONE-MOD) Urine Other 09/15/20 Range/Units 12:30 WBC (4.0-11.0) K/uL RBC (4.30-5.90) M/uL Hgb (12.0-16.0) g/dL Hct (36.0-46.0) % MCV (80.0-98.0) fL MCH (27.0-32.0) pg MCHC (31.0-37.0) g/dL RDW Std Deviation (28.0-62.0) fl RDW Coeff of [place] (11.0-15.0) % Plt Count (150-400) K/uL MPV (7.40-12.00) fL Neut % (Auto) (48.0-80.0) % Lymph % (Auto) (16.0-40.0) % [place] % (Auto) (0.0-15.0) % Eos % (Auto) (0.0-7.0) % Baso % (Auto) (0.0-1.5) % Neut # (Auto) (1.4-5.7) K/uL Lymph # (Auto) (0.6-2.4) K/uL [place] # (Auto) (0.0-0.8) K/uL Eos # (Auto) (0.0-0.7) K/uL Baso # (Auto) (0.0-0.1) K/uL Nucleated RBC % /100WBC Nucleated RBCs # K/uL Sodium (136-145) mmol/L Potassium (3.5-5.1) mmol/L Chloride (98-107) mmol/L Carbon Dioxide (21.0-32.0) mmol/L BUN (7.0-18.0) mg/dL Creatinine (0.6-1.0) mg/dL Est Cr Clr Drug Dosing mL/min Estimated GFR (MDRD) ml/min Glucose (74-106) mg/dL Calcium (8.5-10.1) mg/dL Total Bilirubin (0.2-1.0) mg/dL AST (15-37) IU/L ALT (14-63) IU/L Alkaline Phosphatase (46-116) U/L Troponin I (0.000-0.056) ng/mL Total Protein (6.4-8.2) g/dL Albumin (3.4-5.0) g/dL Globulin (2.6-4.0) g/dL Albumin/Globulin Ratio (0.9-1.6) Lipase (73-393) U/L Urine Color YELLOW Urine Appearance CLEAR Urine pH 6.0 (5.0-8.0) Ur Specific [place] >= 1.030 (1.001-1.035) Urine Protein TRACE H (NEGATIVE) mg/dL Urine Glucose (UA) NEGATIVE (NEGATIVE) mg/dL Urine Ketones TRACE H (NEGATIVE) mg/dL Urine Occult Blood TRACE-INTACT H (NEGATIVE) Urine Nitrite NEGATIVE (NEGATIVE) Urine Bilirubin MODERATE H (NEGATIVE) Urine Urobilinogen 0.2 (<2.0) EU/dL Ur Leukocyte Esterase NEGATIVE (NEGATIVE) Urine RBC 2-3 (0-2/HPF) Urine WBC 2-3 (0-5/HPF) Ur Epithelial Cells FEW (NONE-FEW) Amorphous Sediment FEW (NEGATIVE) Urine Bacteria FEW (NEGATIVE) Urine Mucus MODERATE (NONE-MOD) Urine Other Meds: Medications Generic Name Dose Route Start Last Admin Trade Name Vy PRN Reason Stop Dose Admin Sodium Chloride 10 ml 09/15/20 12:26 09/15/20 12:51 Saline Flush FLUSH 10 ml ASDIRECTED PRN Administration Keep Vein Open Sodium Chloride 2.5 ml 09/15/20 12:26 09/15/20 12:52 Saline Flush FLUSH 2.5 ml ASDIRECTED PRN Administration Keep Vein Open Discontinued Medications Generic Name Dose Route Start Last Admin Trade Name Fresalome PRN Reason Stop Dose Admin Ciprofloxacin 500 mg 09/15/20 16:12 Ciprofloxacin Hcl PO 09/15/20 16:13 ONETIME ONE Sodium Chloride 1,000 mls @ 999 mls/hr 09/15/20 12:26 09/15/20 12:37 Normal Saline IV 09/15/20 13:26 999 mls/hr .BOLUS ONE Administration Iopamidol 100 ml 09/15/20 14:19 09/15/20 14:21 Isovue-370 (76%) IVPUSH 09/15/20 14:20 75 ml ONETIME STA Administration Morphine Sulfate 4 mg 09/15/20 12:26 09/15/20 12:40 Morphine IM 09/15/20 12:27 Not Given ONETIME ONE Morphine Sulfate 4 mg 09/15/20 12:41 09/15/20 12:45 Morphine IVPUSH 09/15/20 12:42 4 mg ONETIME ONE Administration Morphine Sulfate 4 mg 09/15/20 15:46 09/15/20 16:08 Morphine IVPUSH 09/15/20 15:47 4 mg ONETIME ONE Administration Ondansetron HCl 4 mg 09/15/20 12:49 09/15/20 12:52 Zofran IVPUSH 09/15/20 12:50 4 mg ONETIME ONE Administration - Re-Assessments/Exams Free Text/Narrative Re-Assessment/Exam: 09/15/20 16:18 Patient pain is controlled now tolerating p.o. Patient CAT scan showed a colitis. Will send home ciprofloxacin. Patient has a GI that she will follow- up as outpatient. Departure - Departure Time of Disposition: 16:18 Disposition: Home, Self-Care 01 Condition: Good Clinical Impression: Colitis - Discharge Information *PRESCRIPTION DRUG MONITORING PROGRAM REVIEWED*: Not Applicable *COPY OF PRESCRIPTION DRUG MONITORING REPORT IN PATIENT KIMBERLY: Not Applicable Prescriptions: Ciprofloxacin HCl [Cipro] 500 mg PO BID 5 Days #10 tablet Instructions: Viral Gastroenteritis, Adult, [id number] Referrals: Paulette Levine MD [Primary Care Provider] - Forms: ED Department Discharge Additional Instructions: The following information is given to patients seen in the emergency department who are being discharged to home. This information is to outline your options for follow-up care. We provide all patients seen in our emergency department with a follow-up referral. The need for follow-up, as well as the timing and circumstances, are variable depending upon the specifics of your emergency department visit. If you don't have a primary care physician on staff, we will provide you with a referral. We always advise you to contact your personal physician following an emergency department visit to inform them of the circumstance of the visit and for follow-up with them and/or the need for any referrals to a consulting specialist. The emergency department will also refer you to a specialist when appropriate. This referral assures that you have the opportunity for follow-up care with a specialist. All of these measure are taken in an effort to provide you with optimal care, which includes your follow-up. Under all circumstances we always encourage you to contact your private physician who remains a resource for coordinating your care. When calling for follow-up care, please make the office aware that this follow-up is from your recent emergency room visit. If for any reason you are refused follow-up, please contact the [facility] Emergency Department at and asked to speak to the emergency department charge nurse. Please follow up with your primary care physician. If you do not have a primary care physician, see below: [facility] [address] [place] [id number] [facility] [address] [place] [id number] Please follow-up with your GI doctor as needed. If you have any increased nausea vomiting cannot tolerate food or liquids by mouth please return to the ED. Please take your antibiotics as prescribed. Sepsis Event Note (ED) - Evaluation Sepsis Screening Result: No Definite Risk - Focused Exam Vital Signs: Vital Signs Temp Pulse Resp BP Pulse Ox 09/15/20 14:57 71 20 104/57 L 97 09/15/20 13:28 66 16 105/52 L 98 09/15/20 12:11 98 F 81 20 127/66 98 - My Orders Last 24 Hours: My Active Orders 09/15/20 12:13 EKG Documentation Completion [RC] STAT 09/15/20 12:26 Sodium Chloride 0.9% [Saline Flush] 10 ml FLUSH ASDIRECTED PRN Sodium Chloride 0.9% [Saline Flush] 2.5 ml FLUSH ASDIRECTED PRN Saline Lock Insert [OM.PC] Stat - Assessment/Plan Last 24 Hours: My Active Orders 09/15/20 12:13 EKG Documentation Completion [RC] STAT 09/15/20 12:26 Sodium Chloride 0.9% [Saline Flush] 10 ml FLUSH ASDIRECTED PRN Sodium Chloride 0.9% [Saline Flush] 2.5 ml FLUSH ASDIRECTED PRN Saline Lock Insert [OM.PC] Stat Plan: Patient is a 50-year-old female who presents today for abdominal pain. Will obtain labs CT scan give IV fluids and pain meds.
[2020-09-15] MEDS ORDERED: Morphine 4 MG/ML Syringe IVPUSH ONE ×2 (12:41→15:46)
[2020-09-15] MEDS ORDERED: Ondansetron 4 MG/2 ML SDV IVPUSH ONE (12:49)
[2020-09-15 12:57] LABS: BLOOD UREA NITROGEN,BUN 13 mg/dL (7.0-18.0); CARBON DIOXIDE,CO2 25.3 mmol/L (21.0-32.0); CHLORIDE,CL 102 mmol/L (98-107); GLUCOSE RANDOM 112 mg/dL (74-106); LIPASE 66 U/L (73-393); POTASSIUM,K 3.5 mmol/L (3.5-5.1); SODIUM,NA 139 mmol/L (136-145)
[2020-09-15] MEDS ORDERED: Iopamidol 755 Mg/ML 100 ML Bottle IVPUSH STA (14:19)
--- NOTE | 2020-09-15 15:52 | CT ---
INDICATION: Diffuse abdominal pain, history of IBS TECHNIQUE: CT abdomen and pelvis acquired with 75 cc Isovue 370 IV contrast. COMPARISON: July 19, 2018 FINDINGS: Lower chest: Small hiatal hernia. Liver: Unremarkable. Spleen: Unremarkable. Pancreas: Unremarkable. Gallbladder and bile ducts: Unremarkable. Adrenal glands: Unremarkable. Kidneys: Unremarkable. GI tract: There is a lap band. Appendix is surgically absent. There is some fluid in the colon. Mild wall thickening of the mid to distal sigmoid colon. No significant periappendiceal fat stranding. No bowel obstruction. Vascular structures: Unremarkable. Lymph nodes: Unremarkable. Miscellaneous: Unremarkable. No free air or significant free fluid. Pelvic Organs: Status post hysterectomy. There is a pessary. Bones: Unremarkable for age. IMPRESSION: Mild wall thickening of the mid to distal sigmoid colon may represent a nonspecific colitis. Fluid in the colon consistent with diarrheal illness. Small hiatal hernia. Status post placement of lap band and pessary, status post appendectomy, and hysterectomy. Please note that all CT scans at this facility use dose modulation, iterative reconstruction, and/or weight-based dosing when appropriate to reduce radiation dose to as low as reasonably achievable. Dictated by Kerry Frederick MD @ Sep 15 2020 3:51PM Signed by Dr. Kerry Frederick @ Sep 15 2020 3:51PM
[2020-09-15] MEDS ORDERED: Ciprofloxacin 500 MG Tab PO ONE (16:12)
[2020-09-15 16:37] VITALS: BP 105/51; PULSE 64
== END 2020-09-15 16:40 | disposition home or self-care (01) ==
LOC: MW.ED 12:10
DX: K52.9 Noninfective gastroenteritis and colitis, unspecified (principal); F17.210 Nicotine dependence, cigarettes, uncomplicated; Z88.8 Allergy status to other drugs, medicaments and biological substances; Z88.2 Allergy status to sulfonamides; Z88.1 Allergy status to other antibiotic agents; Z88.5 Allergy status to narcotic agent; Z91.040 Latex allergy status; Z91.048 Other nonmedicinal substance allergy status
CPT/HCPCS: 36415; 74177; 80053; 81001; 83690; 84484; 85025; 93005; 96374; 96375; 96376; 99284; A9270; J2270; J2405; J7030; Q9967; 93010

== ENCOUNTER 2021-01-27 12:35 | Emergency (ER) | payer BC ==
--- NOTE | 2021-01-27 12:44 | EDM.PDOC ---
ED HPI GENERAL MEDICAL PROBLEM - General Chief Complaint: General Stated Complaint: CHEST PAIN Time Seen by Provider: 01/27/21 12:36 Source of Information: Reports: Patient History Limitations: Reports: No Limitations - History of Present Illness INITIAL COMMENTS - FREE TEXT/NARRATIVE: 50-year-old female past medical history IBS presents for chest and back pain. Patient notes that she struggles with chronic stomach pain. She notes that she got the first dose of her Covid vaccination 4 days ago. She was feeling okay until today while she was cooking she had a sudden onset middle chest pain radiating to her upper back. It is worse with inspiration. It seems to be easing up from when it was at its worse when it started but it is still bothering her. This pain started roughly 30 minutes prior to arrival. She does not have any history of cardiac problems. She notes mild associated shortness of breath. Chest/Back Pain Score (Numeric/FACES): 10 - Related Data Allergies Allergy/AdvReac Type Severity Reaction Status Date / Time cyclobenzaprine HCl Allergy Intermediate Rash Verified 01/27/21 12:40 [From Flexeril] sulfamethoxazole Allergy Intermediate Hives Verified 01/27/21 12:40 [From Bactrim] trimethoprim [From Bactrim] Allergy Intermediate Hives Verified 01/27/21 12:40 codeine Allergy Swelling Verified 01/27/21 12:40 hydrocodone Allergy Swelling Verified 01/27/21 12:40 latex Allergy Respiratory Verified 01/27/21 12:40 Depression metronidazole [From Flagyl] Allergy Itching Verified 01/27/21 12:40 nitrofurantoin Allergy Rash Verified 01/27/21 12:40 [From Macrobid] nitrofurantoin Allergy Rash Verified 01/27/21 12:40 macrocrystalline [From Macrobid] Benzoine Allergy Hives Uncoded 01/27/21 12:40 Sulfa Allergy Hives Uncoded 01/27/21 12:40 Home Meds: Home Meds Estradiol Acetate [Femring] 1.2 each VG ASDIRECTED 03/19/15 [History] Pantoprazole [ProTONIX] 40 mg PO DAILY 01/27/21 [History] Sucralfate [Carafate] 1 gm PO Q6HR PRN #30 tab 01/27/21 [Rx] buPROPion HCL [Wellbutrin Xl] 300 mg PO DAILY 01/27/21 [History] Past Medical History HEENT History: Reports: Impaired Vision Cardiovascular History: Reports: None Respiratory History: Reports: None Gastrointestinal History: Reports: Chronic Constipation, Diverticulosis, GERD, Irritable Bowel Syndrome Genitourinary History: Reports: None GAS METER PROVER History: Reports: Other (See Below) Other GAS METER PROVER History: biopsy and mass removed from vagina Musculoskeletal History: Reports: None Neurological History: Reports: None Psychiatric History: Reports: None Endocrine/Metabolic History: Reports: None Hematologic History: Reports: None Immunologic History: Reports: None Oncologic (Cancer) History: Reports: None Dermatologic History: Reports: None - Infectious Disease History Infectious Disease History: Reports: Chicken Pox, Measles, Mumps - Past Surgical History Head Surgeries/Procedures: Reports: None HEENT Surgical History: Reports: None Cardiovascular Surgical History: Reports: None Respiratory Surgical History: Reports: None GI Surgical History: Reports: Other (See Below) Other GI Surgeries/Procedures: lap band Female Surgical History: Reports: None Endocrine Surgical History: Reports: None Neurological Surgical History: Reports: None Musculoskeletal Surgical History: Reports: Other (See Below) Other Musculoskeletal Surgeries/Procedures:: L knee surgery, R thumb surgery, Bunion R Oncologic Surgical History: Reports: None Dermatological Surgical History: Reports: None Social & Family History - Family History Family Medical History: No Pertinent Family History - Caffeine Use Caffeine Use: Reports: None ED ROS GENERAL - Review of Systems Review Of Systems: Comprehensive ROS is negative, except as noted in HPI. ED EXAM, GENERAL - Physical Exam Exam: See Below Exam Limited By: No Limitations General Appearance: Alert, WD/WN, No Apparent Distress Throat/Mouth: Normal Voice, No Airway Compromise Head: Atraumatic, Normocephalic Neck: Normal Inspection Respiratory/Chest: No Respiratory Distress, Lungs Clear, Normal Breath Sounds, No Accessory Muscle Use Cardiovascular: Normal Peripheral Pulses, Regular Rate, Rhythm GI/Abdominal: Soft, Non-Tender Extremities: Normal Inspection Neurological: Alert, Normal Gait Psychiatric: Normal Affect, Normal Mood Skin Exam: Warm, Dry, Intact, Normal Color #1 Interpretation EKG Date: 01/27/21 Time: 12:40 Rhythm: NSR Rate (Beats/Min): 77 [place]: Normal P-Wave: Present QRS: Normal ST-T: Normal QT: Normal FL/PQ Interval: 157 Comparison: NA - No Prior EKG EKG Interpretation Comments: normal EKG Course - Vital Signs Last Recorded V/S: Last Vital Signs Temp 98.6 F 01/27/21 12:41 Pulse 66 01/27/21 18:01 Resp 16 01/27/21 16:31 BP 146/47 H 01/27/21 18:01 Pulse Ox 98 01/27/21 18:01 - Orders/Labs/Meds Orders: Active Orders 24 hr Category Date Time Status EKG Documentation Completion [RC] STAT Care 01/27/21 13:04 Active Sodium Chloride 0.9% [Saline Flush] Med 01/27/21 12:50 Active 10 ml FLUSH ASDIRECTED PRN Sodium Chloride 0.9% [Saline Flush] Med 01/27/21 12:50 Active 2.5 ml FLUSH ASDIRECTED PRN Saline Lock Insert [OM.PC] Stat Oth 01/27/21 12:50 Ordered Medication Orders Sodium Chloride (Sodium Chloride 0.9% 10 Ml Syringe) 10 ml FLUSH ASDIRECTED PRN PRN Reason: Keep Vein Open Last Admin: 01/27/21 12:57 Dose: 10 ml Documented by: PHILIP Sodium Chloride (Sodium Chloride 0.9% 2.5 Ml Syringe) 2.5 ml FLUSH ASDIRECTED PRN PRN Reason: Keep Vein Open Last Admin: 01/27/21 12:57 Dose: 2.5 ml Documented by: PHILIP Labs: Laboratory Tests 01/27/21 01/27/21 01/27/21 Range/Units 13:00 13:00 13:00 WBC 4.71 (4.0-11.0) K/uL RBC 4.44 (4.30-5.90) M/uL Hgb 12.2 (12.0-16.0) g/dL Hct 37.7 (36.0-46.0) % MCV 84.9 (80.0-98.0) fL MCH 27.5 (27.0-32.0) pg MCHC 32.4 (31.0-37.0) g/dL RDW Std Deviation 46.1 (28.0-62.0) fl RDW Coeff of Vian[place] 15 (11.0-15.0) % Plt Count 348 (150-400) K/uL MPV 8.80 (7.40-12.00) fL Neut % (Auto) 46.7 L (48.0-80.0) % Lymph % (Auto) 37.4 (16.0-40.0) % [place] % (Auto) 10.0 (0.0-15.0) % Eos % (Auto) 5.1 (0.0-7.0) % Baso % (Auto) 0.8 (0.0-1.5) % Neut # (Auto) 2.2 (1.4-5.7) K/uL Lymph # (Auto) 1.8 (0.6-2.4) K/uL [place] # (Auto) 0.5 (0.0-0.8) K/uL Eos # (Auto) 0.2 (0.0-0.7) K/uL Baso # (Auto) 0.0 (0.0-0.1) K/uL Nucleated RBC % 0.0 /100WBC Nucleated RBCs # 0 K/uL D-Dimer, Quantitative 0.60 H (0.0-0.50) mg/L FEU Lactate 1.0 (0.20-2.00) mmol/L Sodium (136-145) mmol/L Potassium (3.5-5.1) mmol/L Chloride (98-107) mmol/L Carbon Dioxide (21.0-32.0) mmol/L BUN (7.0-18.0) mg/dL Creatinine (0.6-1.0) mg/dL Est Cr Clr Drug Dosing mL/min Estimated GFR (MDRD) ml/min Glucose (74-106) mg/dL Calcium (8.5-10.1) mg/dL Magnesium (1.8-2.4) mg/dL Total Bilirubin (0.2-1.0) mg/dL AST (15-37) IU/L ALT (14-63) IU/L Alkaline Phosphatase (46-116) U/L Troponin I (0.000-0.056) ng/mL Total Protein (6.4-8.2) g/dL Albumin (3.4-5.0) g/dL Globulin (2.6-4.0) g/dL Albumin/Globulin Ratio (0.9-1.6) Lipase (73-393) U/L 01/27/21 01/27/21 Range/Units 13:00 15:32 WBC (4.0-11.0) K/uL RBC (4.30-5.90) M/uL Hgb (12.0-16.0) g/dL Hct (36.0-46.0) % MCV (80.0-98.0) fL MCH (27.0-32.0) pg MCHC (31.0-37.0) g/dL RDW Std Deviation (28.0-62.0) fl RDW Coeff of [place]ian[place] (11.0-15.0) % Plt Count (150-400) K/uL MPV (7.40-12.00) fL Neut % (Auto) (48.0-80.0) % Lymph % (Auto) (16.0-40.0) % [place] % (Auto) (0.0-15.0) % Eos % (Auto) (0.0-7.0) % Baso % (Auto) (0.0-1.5) % Neut # (Auto) (1.4-5.7) K/uL Lymph # (Auto) (0.6-2.4) K/uL [place] # (Auto) (0.0-0.8) K/uL Eos # (Auto) (0.0-0.7) K/uL Baso # (Auto) (0.0-0.1) K/uL Nucleated RBC % /100WBC Nucleated RBCs # K/uL D-Dimer, Quantitative (0.0-0.50) mg/L FEU Lactate (0.20-2.00) mmol/L Sodium 139 (136-145) mmol/L Potassium 3.5 (3.5-5.1) mmol/L Chloride 104 (98-107) mmol/L Carbon Dioxide 29.2 (21.0-32.0) mmol/L BUN 14 (7.0-18.0) mg/dL Creatinine 0.9 (0.6-1.0) mg/dL Est Cr Clr Drug Dosing 52.52 mL/min Estimated GFR (MDRD) > 60.0 ml/min Glucose 91 (74-106) mg/dL Calcium 8.5 (8.5-10.1) mg/dL Magnesium 2.0 (1.8-2.4) mg/dL Total Bilirubin 0.3 (0.2-1.0) mg/dL AST 17 (15-37) IU/L ALT 19 (14-63) IU/L Alkaline Phosphatase 82 (46-116) U/L Troponin I < 0.050 < 0.050 (0.000-0.056) ng/mL Total Protein 7.3 (6.4-8.2) g/dL Albumin 3.5 (3.4-5.0) g/dL Globulin 3.8 (2.6-4.0) g/dL Albumin/Globulin Ratio 0.9 (0.9-1.6) Lipase 109 (73-393) U/L Meds: Medications Generic Name Dose Route Start Last Admin Trade Name Waqasq PRN Reason Stop Dose Admin Sodium Chloride 10 ml 01/27/21 12:50 01/27/21 12:57 Sodium Chloride 0.9% 10 Ml Syringe FLUSH 10 ml ASDIRECTED PRN Administration Keep Vein Open Sodium Chloride 2.5 ml 01/27/21 12:50 01/27/21 12:57 Sodium Chloride 0.9% 2.5 Ml Syringe FLUSH 2.5 ml ASDIRECTED PRN Administration Keep Vein Open Discontinued Medications Generic Name Dose Route Start Last Admin Trade Name Vy PRN Reason Stop Dose Admin Aspirin 324 mg 01/27/21 12:50 01/27/21 12:58 Aspirin 81 Mg Tab.Chew PO 01/27/21 12:51 324 mg ONETIME ONE Administration Al Hydroxide/Mg Hydroxide 15 0 ml 01/27/21 12:50 01/27/21 12:57 ml/ Lidocaine HCl 5 ml PO 01/27/21 12:51 1 each ONETIME ONE Administration Famotidine 20 mg 01/27/21 12:50 01/27/21 12:57 Famotidine 20 Mg/2 Ml Sdv IVPUSH 01/27/21 12:51 20 mg ONETIME ONE Administration Iopamidol 75 ml 01/27/21 17:04 01/27/21 17:05 Iopamidol 755 Mg/Ml 500 Ml Multipack Bottle IVPUSH 01/27/21 17:05 75 ml ONETIME STA Administration Ondansetron HCl 4 mg 01/27/21 12:50 01/27/21 12:57 Ondansetron 4 Mg/2 Ml Sdv IVPUSH 01/27/21 12:51 4 mg ONETIME ONE Administration - Re-Assessments/Exams Free Text/Narrative Re-Assessment/Exam: 01/27/21 12:52 We will get labs including D-dimer and troponin. Will get chest x-ray. Only. Will treat for acid reflux as patient does note that this feels like bad acid reflux and she has history of acid reflux. 01/27/21 13:59 Patient's initial set of labs are unremarkable. Will get a repeat troponin at 3:30 PM. D-dimer is pending as the machine is currently down. Patient notes that her symptoms have resolved after medications. 01/27/21 16:19 Repeat troponin is negative. D-dimer is mildly elevated at 0.6 so we will get a CTA to rule out pulmonary embolism. 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 Had this evaluated 2 months ago. She would like copy of her CT report and so she can share with her primary care physician to make sure that this mass is unchanged if it is discovered on today CT imaging. 01/27/21 18:09 CT imaging does not show evidence of pulmonary embolism but does show thickening of the distal esophagus consistent with esophagitis. Patient is already on Protonix. We will add sucralfate. She notes that she is scheduled for an endoscopy. Departure - Departure Time of Disposition: 18:09 Disposition: Home, Self-Care 01 Condition: Good Clinical Impression: Esophagitis - Discharge Information Prescriptions: Sucralfate [Carafate] 1 gm PO Q6HR PRN #30 tab PRN Reason: Abdominal Pain Referrals: Paulette Levine MD [Primary Care Provider] - Forms: ED Department Discharge Additional Instructions: The following information is given to patients seen in the emergency department who are being discharged to home. This information is to outline your options for follow-up care. We provide all patients seen in our emergency department with a follow-up referral. The need for follow-up, as well as the timing and circumstances, are variable depending upon the specifics of your emergency department visit. If you don't have a primary care physician on staff, we will provide you with a referral. We always advise you to contact your personal physician following an emergency department visit to inform them of the circumstance of the visit and for follow-up with them and/or the need for any referrals to a consulting specialist. The emergency department will also refer you to a specialist when appropriate. This referral assures that you have the opportunity for follow-up care with a specialist. All of these measure are taken in an effort to provide you with optimal care, which includes your follow-up. Under all circumstances we always encourage you to contact your private physician who remains a resource for coordinating your care. When calling for follow-up care, please make the office aware that this follow-up is from your recent emergency room visit. If for any reason you are refused follow-up, please contact the [facility] Emergency Department at and asked to speak to the emergency department charge nurse. Please follow up with your primary care physician. If you do not have a primary care physician, see below: [facility] [address] [place] [id number] [facility] [address] [place] [id number] [facility] [address] [place] [id number] Sepsis Event Note (ED) - Evaluation Sepsis Screening Result: No Definite Risk - Focused Exam Vital Signs: Vital Signs Temp Pulse Resp BP Pulse Ox 01/27/21 18:01 66 146/47 H 98 01/27/21 17:10 69 137/43 L 99 01/27/21 16:31 67 16 118/57 L 97 01/27/21 14:49 61 118/73 98 01/27/21 12:41 98.6 F 91 18 119/74 98 - My Orders Last 24 Hours: My Active Orders 01/27/21 12:50 Sodium Chloride 0.9% [Saline Flush] 10 ml FLUSH ASDIRECTED PRN Sodium Chloride 0.9% [Saline Flush] 2.5 ml FLUSH ASDIRECTED PRN Saline Lock Insert [OM.PC] Stat 01/27/21 13:04 EKG Documentation Completion [RC] STAT - Assessment/Plan Last 24 Hours: My Active Orders 01/27/21 12:50 Sodium Chloride 0.9% [Saline Flush] 10 ml FLUSH ASDIRECTED PRN Sodium Chloride 0.9% [Saline Flush] 2.5 ml FLUSH ASDIRECTED PRN Saline Lock Insert [OM.PC] Stat 01/27/21 13:04 EKG Documentation Completion [RC] STAT
[2021-01-27] MEDS ORDERED: Aspirin 81 MG Tab.Chew PO ONE (12:50)
[2021-01-27] MEDS ORDERED: Sodium Chloride 0.9% 10 ML Syringe FLUSH PRN (12:50)
[2021-01-27] MEDS ORDERED: Alum Hydrox/Mag Hydrox/Simeth 15 ML, Lidocaine 2% 5 ML PO ONE ×2 (12:50)
[2021-01-27] MEDS ORDERED: Sodium Chloride 0.9% 2.5 ML Syringe FLUSH PRN (12:50)
[2021-01-27] MEDS ORDERED: Ondansetron 4 MG/2 ML SDV IVPUSH ONE (12:50)
[2021-01-27] MEDS ORDERED: Famotidine 20 MG/2 ML SDV IVPUSH ONE (12:50)
--- NOTE | 2021-01-27 13:33 | CR ---
INDICATION: Chest pain. COMPARISON: None. FINDINGS: A portable AP view of the chest was obtained. The cardiac silhouette and pulmonary vasculature are within normal limits. The lungs are clear bilaterally. IMPRESSION: No evidence of acute pulmonary disease. Dictated by Zach Woodard MD @ Jan 27 2021 1:30PM Signed by Dr. Zach Woodard @ Jan 27 2021 1:32PM
[2021-01-27 13:39] LABS: BLOOD UREA NITROGEN,BUN 14 mg/dL (7.0-18.0); CARBON DIOXIDE,CO2 29.2 mmol/L (21.0-32.0); CHLORIDE,CL 104 mmol/L (98-107); GLUCOSE RANDOM 91 mg/dL (74-106); LIPASE 109 U/L (73-393); POTASSIUM,K 3.5 mmol/L (3.5-5.1); SODIUM,NA 139 mmol/L (136-145)
[2021-01-27] MEDS ORDERED: Iopamidol 755 MG/ML 500 ML Multipack Bottle IVPUSH STA (17:04)
[2021-01-27 18:02] VITALS: BP 146/47; PULSE 66
--- NOTE | 2021-01-27 18:02 | CT ---
INDICATION: Chest and back pain TECHNIQUE: CT chest pulmonary PE protocol acquired with 75 cc Isovue 370 IV contrast. COMPARISON: None FINDINGS: Cardiovascular structures: Normal vascular enhancement of the pulmonary arteries, no sign of pulmonary embolism. Heart size is normal. No sign of aneurysm in the thoracic aorta. Mediastinum and torres: No mass or adenopathy. The johnson of the esophagus appear thickened, suboptimally evaluated due to phase of IV contrast. There is a small hiatal hernia. Lungs: 4.8 subpleural pulmonary nodule in the right upper lobe image 40 series 802. 3 mm subpleural pulmonary nodule in the right middle lobe image 97 series 802. 2.5 mm subpleural pulmonary nodule in the right middle lobe image 106 series 802. Pleura and pericardium: No effusions. Chest wall and axilla: No mass or adenopathy. Upper abdomen: Gastric banding device is seen in the proximal stomach. Bones: No significant findings. IMPRESSION: No pulmonary embolism or pneumonia. Several pulmonary nodules. Recommend follow-up per Fleischner society guidelines, as listed below. Questionable wall thickening of the esophagus. Consider standard CT chest with IV contrast for further evaluation. Gastric banding device. FLEISCHNER SOCIETY GUIDELINES - SOLID NODULES: MULTIPLE LOW RISK - nodule less than 6 mm: No routine follow-up. - nodule 6-8 mm: CT at 3-6 months, then consider CT at 18-24 months. - nodule greater than 8 mm: CT at 3-6 months, then consider CT at 18-24 months. MULTIPLE HIGH RISK - nodule less than 6 mm: Optional CT at 12 months. - nodule 6-8 mm: CT at 3-6 months, then at 18-24 months. - nodule greater than 8 mm: CT at 3-6 months, then at 18-24 months. Please note that all CT scans at this facility use dose modulation, iterative reconstruction, and/or weight-based dosing when appropriate to reduce radiation dose to as low as reasonably achievable. Dictated by Kerry Frederick MD @ Jan 27 2021 6:01PM Signed by Dr. Kerry Frederick @ Jan 27 2021 6:01PM
== END 2021-01-27 18:25 | disposition home or self-care (01) ==
LOC: MW.ED 12:35
DX: K20.90 Esophagitis, unspecified without bleeding (principal); K21.9 Gastro-esophageal reflux disease without esophagitis; Z88.8 Allergy status to other drugs, medicaments and biological substances; Z88.2 Allergy status to sulfonamides; Z88.1 Allergy status to other antibiotic agents; Z88.5 Allergy status to narcotic agent; Z91.040 Latex allergy status; Z91.048 Other nonmedicinal substance allergy status; Z79.899 Other long term (current) drug therapy
CPT/HCPCS: 36415; 71045; 71275; 80053; 83605; 83690; 83735; 84484; 85025; 85379; 96374; 96375; 99285; A9270; J2405; J3490; Q9967

== ENCOUNTER 2021-05-23 09:58 | Emergency (ER) | payer OTHER, BC ==
--- NOTE | 2021-05-23 10:28 | EDM.PDOC ---
ED HPI GENERAL MEDICAL PROBLEM - General Chief Complaint: Upper Extremity Injury/Pain Stated Complaint: WORK INJURY/FOREARM/ELBOW Time Seen by Provider: 05/23/21 10:05 Source of Information: Reports: Patient History Limitations: Reports: No Limitations - History of Present Illness INITIAL COMMENTS - FREE TEXT/NARRATIVE: HISTORY AND PHYSICAL: History of present illness: Patient is a 50-year-old female who resents to the ED today with concern of left elbow/forearm pain and injury that occurred just prior to arrival to the emergency room. 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 Patient states she went and turned around on the floor was wet and she slipped and states that her left arm caught the stool of the table and states that she landed on her bottom. Patient states she did not hit her head or lose consciousness and states that the only pain she has is left forearm/left elbow pain. Patient denies any other symptoms or concerns. Patient denies fever, chills, chest pain, shortness of breath, or cough. Denies headache, neck stiff ness, change in vision, syncope, or near syncope. Denies nausea, vomiting, abdominal pain, diarrhea, constipation, or dysuria. Has not noted any blood in urine or stool. Patient has been eating and drinking appropriately. Review of systems: As per history of present illness and below otherwise all systems reviewed and negative. Past medical history: As per history of present illness and as reviewed below otherwise noncontributory. Surgical history: As per history of present illness and as reviewed below otherwise noncontributory. Social history: See social history for further information Family history: As per history of present illness and as reviewed below otherwise noncontributory. Physical exam: General: Patient is alert, oriented, and in no acute distress. Patient sitting comfortably on exam table. Vitals stable and reviewed by me. HEENT: Atraumatic, normocephalic, pupils equal and reactive bilaterally, negative for conjunctival pallor or scleral icterus, mucous membranes moist, TMs normal bilaterally, throat clear, neck supple, nontender, trachea midline. No drooling or trismus noted. No meningeal signs. No hot potato voice noted. Lungs: Clear to auscultation, breath sounds equal bilaterally, chest nontender. Heart: S1S2, regular rate and rhythm without overt murmur Abdomen: Soft, nondistended, nontender. Negative for masses or hepatosplenomegaly. Negative for costovertebral tenderness. Pelvis: Stable nontender. Genitourinary: Deferred. Rectal: Deferred. Skin: Intact, warm, dry. No lesions or rashes noted. Extremities: There is mild ecchymosis noted to the medial olecranon of the LUE with pain to palpation of this area and pain to palpation all along the proximal forearm without obvious deformity. Patient does have full range of motion of the complete left upper extremity with some pain of the left elbow with range of motion. Radial pulses grossly intact of the left upper extremity with capillary refill less than 2 seconds. Intact sensation to light and deep touch of the complete left upper extremity. All compartments are soft of the left upper extremity. Otherwise, atraumatic, negative for cords or calf pain. Neurovascular unremarkable. Neuro: Awake, alert, oriented. Cranial nerves II through XII unremarkable. Cerebellum unremarkable. Motor and sensory unremarkable throughout. Exam nonfocal. Notes: Signs and symptoms that were prompt return to the ED thoroughly discussed with patient. Discussed importance for follow-up with a primary care provider Voices understanding and is agreeable to plan of care. Denies any further questions or concerns at this time. Diagnostics: Forearm and elbow x-ray, left Therapeutics: Arm sling Prescription: None Impression: Left elbow injury Plan: 1. Rest, ice, elevate the affected extremity. You can apply ice 15 minutes on, 15 minutes off. Use sling as discussed. 2. Tylenol and/or Ibuprofen as directed for pain management or discomfort. 3. Follow up with the primary care provider as discussed. Return to the ED as needed and as discussed. Definitive disposition and diagnosis as appropriate pending reevaluation and review of above. - Related Data Allergies Allergy/AdvReac Type Severity Reaction Status Date / Time cyclobenzaprine HCl Allergy Intermediate Rash Verified 05/23/21 10:10 [From Flexeril] sulfamethoxazole Allergy Intermediate Hives Verified 05/23/21 10:10 [From Bactrim] trimethoprim [From Bactrim] Allergy Intermediate Hives Verified 05/23/21 10:10 codeine Allergy Swelling Verified 05/23/21 10:10 hydrocodone Allergy Swelling Verified 05/23/21 10:10 latex Allergy Respiratory Verified 05/23/21 10:10 Depression metronidazole [From Flagyl] Allergy Itching Verified 05/23/21 10:10 nitrofurantoin Allergy Rash Verified 05/23/21 10:10 [From Macrobid] nitrofurantoin Allergy Rash Verified 05/23/21 10:10 macrocrystalline [From Macrobid] Benzoine Allergy Hives Uncoded 05/23/21 10:10 Sulfa Allergy Hives Uncoded 05/23/21 10:10 Home Meds: Home Meds Estradiol Acetate [Femring] 1.2 each VG ASDIRECTED 03/19/15 [History] Past Medical History HEENT History: Reports: Impaired Vision Cardiovascular History: Reports: None Respiratory History: Reports: None Gastrointestinal History: Reports: Chronic Constipation, Diverticulosis, GERD, Irritable Bowel Syndrome Genitourinary History: Reports: None NATIONAL SECRETARY History: Reports: Other (See Below) Other NATIONAL SECRETARY History: biopsy and mass removed from vagina Musculoskeletal History: Reports: None Neurological History: Reports: None Psychiatric History: Reports: None Endocrine/Metabolic History: Reports: None Hematologic History: Reports: None Immunologic History: Reports: None Oncologic (Cancer) History: Reports: None Dermatologic History: Reports: None - Infectious Disease History Infectious Disease History: Reports: Chicken Pox, Measles, Mumps - Past Surgical History Head Surgeries/Procedures: Reports: None HEENT Surgical History: Reports: None Cardiovascular Surgical History: Reports: None Respiratory Surgical History: Reports: None GI Surgical History: Reports: Other (See Below) Other GI Surgeries/Procedures: lap band Female Surgical History: Reports: None Endocrine Surgical History: Reports: None Neurological Surgical History: Reports: None Musculoskeletal Surgical History: Reports: Other (See Below) Other Musculoskeletal Surgeries/Procedures:: L knee surgery, R thumb surgery, Bunion R Oncologic Surgical History: Reports: None Dermatological Surgical History: Reports: None Social & Family History - Family History Family Medical History: No Pertinent Family History - Tobacco Use Tobacco Use Status *Q: Current Every Day Tobacco User Years of Tobacco use: 40 Packs/Tins Daily: 1 - Caffeine Use Caffeine Use: Reports: None - Recreational Drug Use Recreational Drug Use: Yes Drug Use in Last 12 Months: Yes Recreational Drug Type: Reports: Marijuana/Hashish Recreational Drug Use Frequency: Daily Review of Systems - Review of Systems Review Of Systems: Comprehensive ROS is negative, except as noted in HPI. ED EXAM, GENERAL - Physical Exam Exam: See Below (see dictation) Course - Vital Signs Last Recorded V/S: Last Vital Signs Temp 98 F 05/23/21 10:10 Pulse 78 05/23/21 10:10 Resp 16 05/23/21 10:10 BP 137/75 05/23/21 10:10 Pulse Ox 100 05/23/21 10:10 Departure - Departure Time of Disposition: 11:11 Disposition: Home, Self-Care 01 Clinical Impression: Injury of elbow Qualifiers: Encounter type: initial encounter Laterality: left Qualified Code(s): S59.902A - Unspecified injury of left elbow, initial encounter - Discharge Information Instructions: How To Use a Sling, [id number] Referrals: PCP,None [Primary Care Provider] - Forms: ED Department Discharge Additional Instructions: The following information is given to patients seen in the emergency department who are being discharged to home. This information is to outline your options for follow-up care. We provide all patients seen in our emergency department with a follow-up referral. The need for follow-up, as well as the timing and circumstances, are variable depending upon the specifics of your emergency department visit. If you don't have a primary care physician on staff, we will provide you with a referral. We always advise you to contact your personal physician following an emergency department visit to inform them of the circumstance of the visit and for follow-up with them and/or the need for any referrals to a consulting specialist. The emergency department will also refer you to a specialist when appropriate. This referral assures that you have the opportunity for follow-up care with a specialist. All of these measure are taken in an effort to provide you with optimal care, which includes your follow-up. Under all circumstances we always encourage you to contact your private physician who remains a resource for coordinating your care. When calling for follow-up care, please make the office aware that this follow-up is from your recent emergency room visit. If for any reason you are refused follow-up, please contact the [facility] Emergency Department at and asked to speak to the emergency department charge nurse. [facility] [address] [place] [id number] [facility] [address] [place] [id number] 1. Rest, ice, elevate the affected extremity. You can apply ice 15 minutes on, 15 minutes off. Use sling as discussed. 2. Tylenol and/or Ibuprofen as directed for pain management or discomfort. 3. Follow up with the primary care provider as discussed. Return to the ED as needed and as discussed. Sepsis Event Note (ED) - Evaluation Sepsis Screening Result: No Definite Risk - Focused Exam Vital Signs: Vital Signs Temp Pulse Resp BP Pulse Ox 05/23/21 10:10 98 F 78 16 137/75 100
--- NOTE | 2021-05-23 11:09 | CR ---
Indication: Arm injury. Technique: Left forearm 2 views. Comparison: None. Findings: No acute fracture or dislocation. The elbow and wrist appear normally aligned. No elbow joint effusion. Small area of focal soft tissue prominence in the distal forearm. Impression: Small area of focal soft tissue prominence in the distal forearm. No other acute findings. Dictated by Gabrielle Ayala MD @ 05/23/2021 11:06:[address] Gabrielle Ayala @ May 23 2021 11:06AM
--- NOTE | 2021-05-23 11:11 | CR ---
Indication: Arm pain, injury. Technique: Left humerus 2 views. Comparison: None. Findings: No acute fracture or dislocation. The shoulder and elbow appear normally aligned. Chronic changes of the distal left clavicle. The visualized left lung is clear. Soft tissues are unremarkable. Impression: 1. No acute findings. 2. Chronic changes of the distal left clavicle. Dictated by Gabrielle Ayala MD @ 05/23/2021 11:09:[address] Gabrielle Ayala @ May 23 2021 11:09AM
[2021-05-23 11:25] VITALS: BP 114/65; PULSE 66
== END 2021-05-23 11:25 | disposition home or self-care (01) ==
LOC: MW.ED 09:58
DX: S50.02XA Contusion of left elbow, initial encounter (principal); Z88.2 Allergy status to sulfonamides; Z88.5 Allergy status to narcotic agent; Z88.1 Allergy status to other antibiotic agents; Z91.040 Latex allergy status; Z72.0 Tobacco use; W18.49XA Other slipping, tripping and stumbling without falling, initial encounter; W23.0XXA Caught, crushed, jammed, or pinched between moving objects, initial encounter
CPT/HCPCS: 73060-26-LT; 73060-LT; 73090-26-LT; 73090-LT; 99283-25

== ENCOUNTER 2021-06-17 16:54 | Emergency (ER) | payer BC ==
[2021-06-17] MEDS ORDERED: Lidocaine 5% 700 MG Patch TOP ONE (17:26)
--- NOTE | 2021-06-17 17:26 | EDM.PDOC ---
ED HPI GENERAL MEDICAL PROBLEM - General Chief Complaint: Abdominal Pain Stated Complaint: BURNING PAIN ON RT SIDE Time Seen by Provider: 06/17/21 16:55 Source of Information: Reports: Patient History Limitations: Reports: No Limitations - History of Present Illness INITIAL COMMENTS - FREE TEXT/NARRATIVE: Patient is a 50-year-old female who presents today for burning to the right flank. Patient that she was seen in the walk-in clinic and had a work-up done that was negative there. She was told to come back here for possible CT to see if the mass in her lung was getting bigger and may be causing the pain. On exam patient has just burning and tingling to the scan. She denies abdominal pain chest pain nausea vomiting fever chills. The pain is made worse with touching the skin. But she does not see any rash or lesions to the area. RUQ Pain Score (Numeric/FACES): 7 - Related Data Allergies Allergy/AdvReac Type Severity Reaction Status Date / Time cyclobenzaprine HCl Allergy Intermediate Rash Verified 06/17/21 17:05 [From Flexeril] sulfamethoxazole Allergy Intermediate Hives Verified 06/17/21 17:05 [From Bactrim] trimethoprim [From Bactrim] Allergy Intermediate Hives Verified 06/17/21 17:05 codeine Allergy Swelling Verified 06/17/21 17:05 hydrocodone Allergy Swelling Verified 06/17/21 17:05 latex Allergy Respiratory Verified 06/17/21 17:05 Depression metronidazole [From Flagyl] Allergy Itching Verified 06/17/21 17:05 nitrofurantoin Allergy Rash Verified 06/17/21 17:05 [From Macrobid] nitrofurantoin Allergy Rash Verified 06/17/21 17:05 macrocrystalline [From Macrobid] Benzoine Allergy Hives Uncoded 05/23/21 10:10 Sulfa Allergy Hives Uncoded 05/23/21 10:10 Home Meds: Home Meds Estradiol Acetate [Femring] 1.2 each VG ASDIRECTED 03/19/15 [History] Past Medical History HEENT History: Reports: Impaired Vision Cardiovascular History: Reports: None Respiratory History: Reports: None Gastrointestinal History: Reports: Chronic Constipation, Diverticulosis, GERD, Irritable Bowel Syndrome Genitourinary History: Reports: None COMPUTER VIDEO GAME DESIGNER History: Reports: Other (See Below) Other COMPUTER VIDEO GAME DESIGNER History: biopsy and mass removed from vagina Musculoskeletal History: Reports: None Neurological History: Reports: None Psychiatric History: Reports: None Endocrine/Metabolic History: Reports: None Hematologic History: Reports: None Immunologic History: Reports: None Oncologic (Cancer) History: Reports: None Dermatologic History: Reports: None - Infectious Disease History Infectious Disease History: Reports: Chicken Pox, Measles, Mumps - Past Surgical History Head Surgeries/Procedures: Reports: None HEENT Surgical History: Reports: None Cardiovascular Surgical History: Reports: None Respiratory Surgical History: Reports: None GI Surgical History: Reports: Other (See Below) Other GI Surgeries/Procedures: lap band Female Surgical History: Reports: None Endocrine Surgical History: Reports: None Neurological Surgical History: Reports: None Musculoskeletal Surgical History: Reports: Other (See Below) Other Musculoskeletal Surgeries/Procedures:: L knee surgery, R thumb surgery, Bunion R Oncologic Surgical History: Reports: None Dermatological Surgical History: Reports: None Social & Family History - Family History Family Medical History: No Pertinent Family History - Tobacco Use Tobacco Use Status *Q: Current Every Day Tobacco User Years of Tobacco use: 40 Packs/Tins Daily: 1 - Caffeine Use Caffeine Use: Reports: None - Recreational Drug Use Recreational Drug Use: Yes Recreational Drug Type: Reports: Marijuana/Hashish Recreational Drug Use Frequency: Weekly ED ROS GENERAL - Review of Systems Review Of Systems: See Below Constitutional: Reports: No Symptoms HEENT: Reports: No Symptoms Respiratory: Reports: No Symptoms Cardiovascular: Reports: No Symptoms Endocrine: Reports: No Symptoms GI/Abdominal: Reports: No Symptoms : Reports: No Symptoms Musculoskeletal: Reports: No Symptoms Skin: Reports: No Symptoms Neurological: Reports: No Symptoms Psychiatric: Reports: No Symptoms Hematologic/Lymphatic: Reports: No Symptoms Immunologic: Reports: No Symptoms ED EXAM, GI/ABD - Physical Exam Exam: See Below Exam Limited By: No Limitations General Appearance: Alert, WD/WN, No Apparent Distress Eyes: Bilateral: EOMI Head: Atraumatic Neck: Normal Inspection, Supple, Non-Tender Respiratory/Chest: No Respiratory Distress, Lungs Clear, Normal Breath Sounds Cardiovascular: Normal Peripheral Pulses, Regular Rate, Rhythm GI/Abdominal Exam: Normal Bowel Sounds, Soft, Non-Tender Back Exam: No: CVA Tenderness (R) (Patient has tingling and burning sensation to the right flank that is increased with light touch) Extremities: Normal Inspection, Normal Range of Motion Neurological: Alert, Oriented, Normal Cognition, Normal Gait Course - Vital Signs Last Recorded V/S: Last Vital Signs Temp 97.2 F 06/17/21 17:06 Pulse 87 06/17/21 17:06 Resp 18 06/17/21 17:06 BP 129/69 06/17/21 17:06 Pulse Ox 99 06/17/21 17:06 - Orders/Labs/Meds Meds: Medications Discontinued Medications Generic Name Dose Route Start Last Admin Trade Name Vy PRN Reason Stop Dose Admin Iopamidol 75 ml 06/17/21 18:15 06/17/21 18:15 Iopamidol 755 Mg/Ml 500 Ml Multipack Bottle IVPUSH 06/17/21 18:16 75 ml ONETIME STA Administration Lidocaine 700 mg 06/17/21 17:26 06/17/21 17:33 Lidocaine 5% 700 Mg Patch TOP 06/17/21 17:27 700 mg ONETIME ONE Administration - Re-Assessments/Exams Free Text/Narrative Re-Assessment/Exam: 06/17/21 19:03 CTs are negative. Again patient pain is more on the scan there is no signs of shingles. Patient will be discharged with follow-up primary care physician. Departure - Departure Time of Disposition: 19:04 Disposition: Home, Self-Care 01 Condition: Good Clinical Impression: Skin pain - Discharge Information *PRESCRIPTION DRUG MONITORING PROGRAM REVIEWED*: Not Applicable *COPY OF PRESCRIPTION DRUG MONITORING REPORT IN PATIENT KIMBERLY: Not Applicable Referrals: Paulette Levine MD [Primary Care Provider] - Forms: ED Department Discharge Additional Instructions: The following information is given to patients seen in the emergency department who are being discharged to home. This information is to outline your options for follow-up care. We provide all patients seen in our emergency department with a follow-up referral. The need for follow-up, as well as the timing and circumstances, are variable depending upon the specifics of your emergency department visit. If you don't have a primary care physician on staff, we will provide you with a referral. We always advise you to contact your personal physician following an emergency department visit to inform them of the circumstance of the visit and for follow-up with them and/or the need for any referrals to a consulting spec ialist. The emergency department will also refer you to a specialist when appropriate. This referral assures that you have the opportunity for follow-up care with a specialist. All of these measure are taken in an effort to provide you with optimal care, which includes your follow-up. Under all circumstances we always encourage you to contact your private physician who remains a resource for coordinating your care. When calling for follow-up care, please make the office aware that this follow-up is from your recent emergency room visit. If for any reason you are refused follow-up, please contact the [facility] Emergency Department at and asked to speak to the emergency department charge nurse. Please follow up with your primary care physician. If you do not have a primary care physician, see below: [facility] [address] [place] [id number] [facility] [address] [place] [address] You are seen today for pain to your right flank. On exam there is no signs of any shingles. However over the next few days you develop any please return to the ED immediately otherwise follow-up with primary care physician. Your CT scans did not show any large number of pulmonary nodules or any source of your pain. Sepsis Event Note (ED) - Evaluation Sepsis Screening Result: No Definite Risk - Focused Exam Vital Signs: Vital Signs Temp Pulse Resp BP Pulse Ox 06/17/21 17:06 97.2 F 87 18 129/69 99 - Assessment/Plan Plan: Patient is a 50-year-old female who was seen in walk-in clinic for burn to the right flank. Patient was told to come back here for a CT scan to see if she had any increase size of her mass in her right lung. Looking at previous notes no mention of this mass. But we will obtain images and reassess patient.
[2021-06-17] MEDS ORDERED: Iopamidol 755 MG/ML 500 ML Multipack Bottle IVPUSH STA (18:15)
--- NOTE | 2021-06-17 18:50 | CT ---
INDICATION: Right flank pain. TECHNIQUE: CT abdomen and pelvis with intravenous contrast, 75 mL of Isovue-370. Coronal and sagittal reformats. COMPARISON: CT 09/15/2020. FINDINGS: The imaged lower chest demonstrates a small-moderate hiatal hernia Normal liver contour. Small left hepatic cyst as well as multiple tiny subcentimeter hypoattenuating lesions which appear similar to prior, but too small to accurately characterize. Portal veins patent. No biliary dilatation. The gallbladder, pancreas, spleen, and adrenals are unremarkable. Symmetric renal enhancement. No hydronephrosis bilaterally. Unremarkable urinary bladder. Pessary device in place. The bowel appears normal in caliber and enhancement diffusely. Gastric lap band in place, similar in configuration to prior. No free air, free fluid, focal collection, or lymphadenopathy. Normal caliber abdominal aorta with minimal atherosclerotic changes. She lower lumbar spondylosis. IMPRESSION: No acute findings or CT correlate for reported symptoms definitively identified. Dictated by Salty Frederick MD @ 06/17/2021 6:47:56 PM Please note that all CT scans at this facility use dose modulation, iterative reconstruction, and/or weight-based dosing when appropriate to reduce radiation dose to as low as reasonably achievable. Dictated by: Salty Frederick MD @ 06/17/2021 18:48:13 (Electronically Signed)
--- NOTE | 2021-06-17 19:03 | CT ---
INDICATION: Right flank pain. TECHNIQUE: Chest CT with intravenous contrast, 75 mL of Isovue-370. Coronal and sagittal reformats. COMPARISON: Chest CT 11/05/2020. FINDINGS: Central airways patent. Unchanged right upper lobe posterior subpleural 4 mm ground-glass nodule (series 201, image 31). Unchanged right middle lobe anterior subpleural 3 mm noncalcified nodule (series 201, image 62). Unchanged right middle lobe 2 mm noncalcified subpleural nodule (series 201, image 67). Unchanged left lower lobe noncalcified 2 mm nodule (series 201, image 77). No additional focal pulmonary opacity. No pneumothorax or pleural effusion. Normal cardiac size. No pericardial effusion or thoracic lymphadenopathy. Thoracic aorta is patent and normal caliber without dissection. Aberrant right subclavian artery. Normal caliber pulmonary arteries. Right thyroid hypoattenuating 1.3 cm nodule (series 201, image 1). Mildly patulous esophagus with a small-moderate hiatal hernia. No suspicious osseous lesion. IMPRESSION: 1. No acute findings or CT correlate for reported symptoms identified. 2. Multiple tiny pulmonary nodules appear unchanged. 3. Please see separate same day CT abdomen/pelvis report. Dictated by Salty Frederick MD @ 06/17/2021 7:00:53 PM Please note that all CT scans at this facility use dose modulation, iterative reconstruction, and/or weight-based dosing when appropriate to reduce radiation dose to as low as reasonably achievable. Dictated by: Salty Frederick MD @ 06/17/2021 19:01:03 (Electronically Signed)
[2021-06-18 01:03] VITALS: BP 104/56; PULSE 78
== END 2021-06-17 19:15 | disposition home or self-care (01) ==
LOC: MW.ED 16:54
DX: R10.9 Unspecified abdominal pain (principal); Z88.5 Allergy status to narcotic agent; Z88.1 Allergy status to other antibiotic agents; Z91.040 Latex allergy status; Z88.2 Allergy status to sulfonamides; Z72.0 Tobacco use
CPT/HCPCS: 71260; 74177; 99284; A9270; Q9967

== ENCOUNTER 2023-03-28 03:16 | Emergency (ER) | payer BC ==
[2023-03-28] MEDS ORDERED: Sodium Chloride 0.9% 1,000 ML IV ONE ×2 (03:28→04:52)
[2023-03-28] MEDS ORDERED: HYDROmorphone 1 MG/ML Syringe IVPUSH ONE (03:28)
[2023-03-28] MEDS ORDERED: Ondansetron 4 MG/2 ML SDV IVPUSH ONE (03:28)
[2023-03-28 03:37] LABS: BASOPHILS PERCENT AUTO 0.3 % (0.0-1.5); EOSINOPHILS ABSOLUTE AUTO 0.2 K/uL (0.0-0.7); EOSINOPHILS PERCENT AUTO 1.7 % (0.0-7.0); HEMATOCRIT 44.3 % (36.0-46.0); HEMOGLOBIN 15.2 g/dL (12.0-16.0); LYMPHOCYTES PERCENT AUTO 16.8 % (16.0-40.0); MEAN CORPUSCULAR HEMOGLOBIN 29.7 pg (27.0-32.0); MEAN CORPUSCULAR HGB CONC 34.3 g/dL (31.0-37.0); MEAN CORPUSCULAR VOLUME 86.5 fL (80.0-98.0); MONOCYTES ABSOLUTE AUTO 0.8 K/uL (0.0-0.8); MONOCYTES PERCENT AUTO 6.8 % (0.0-15.0); NEUTROPHILS ABSOLUTE AUTO 8.6 K/uL (1.4-5.7); NEUTROPHILS PERCENT AUTO 74.4 % (48.0-80.0); NRBC ABSOLUTE 0 K/uL; PLATELET COUNT,PLT 323 K/uL (150-400); RED BLOOD CELL COUNT 5.12 M/uL (4.30-5.90); WHITE BLOOD CELL COUNT,WBC 11.58 K/uL (4.0-11.0)
[2023-03-28 04:00] LABS: ALANINE AMINOTRANSFERASE,ALT 18 IU/L (14-63); ALBUMIN 3.8 g/dL (3.4-5.0); ALKALINE PHOSPHATASE 93 U/L (46-116); ASPARTATE AMNIOTRANSFERASE,AST 18 IU/L (15-37); BILIRUBIN TOTAL 0.3 mg/dL (0.2-1.0); BLOOD UREA NITROGEN,BUN 20 mg/dL (7.0-18.0); CALCIUM 9.1 mg/dL (8.5-10.1); CARBON DIOXIDE,CO2 28.2 mmol/L (21.0-32.0); CHLORIDE,CL 100 mmol/L (98-107); CREATININE 0.9 mg/dL (0.6-1.0); EST CRCL DRUG DOSING (CG) 51.33 mL/min; GLUCOSE RANDOM 127 mg/dL (74-106); LIPASE 107 U/L (73-393); MAGNESIUM 1.7 mg/dL (1.8-2.4); POTASSIUM,K 3.6 mmol/L (3.5-5.1); PROTEIN TOTAL,TP 7.5 g/dL (6.4-8.2); SODIUM,NA 140 mmol/L (136-145)
[2023-03-28 04:08] LABS: ESTIMATED GFR 76 mL/min (>60); ETHANOL BLOOD MEDICAL < 3.0 mg/dL
[2023-03-28 04:19] LABS: LACTIC ACID 2.6 mmol/L (0.4-2.0)
[2023-03-28] MEDS ORDERED: Iopamidol 755 MG/ML 500 ML Multipack Bottle IVPUSH ONE (04:29)
[2023-03-28 06:21] VITALS: BP 101/67; PULSE 76
== END 2023-03-28 06:20 | disposition home or self-care (01) ==
LOC: MW.ED 03:16
DX: K29.70 Gastritis, unspecified, without bleeding (principal); Z88.1 Allergy status to other antibiotic agents; Z88.8 Allergy status to other drugs, medicaments and biological substances; Z88.2 Allergy status to sulfonamides; Z88.5 Allergy status to narcotic agent; Z91.040 Latex allergy status
CPT/HCPCS: 36415; 71275; 74174; 80053; 80307; 83605; 83690; 83735; 84484; 85025; 93005; 96361; 96374; 96375; 99285; J1170; J2405; J7030; Q9967; 93010; 99284

== ENCOUNTER 2023-07-01 09:00 | Emergency (ER) | payer BC ==
[2023-07-01] MEDS ORDERED: Ondansetron 4 MG/2 ML SDV IVPUSH ONE (09:03)
[2023-07-01] MEDS ORDERED: Sodium Chloride 0.9% 2.5 ML Syringe FLUSH PRN (09:03)
[2023-07-01] MEDS ORDERED: Sodium Chloride 0.9% 10 ML Syringe FLUSH PRN (09:03)
[2023-07-01] MEDS ORDERED: Famotidine 20 MG/2 ML SDV IVPUSH ONE (09:03)
[2023-07-01 09:55] LABS: BASOPHILS PERCENT AUTO 0.3 % (0.0-1.5); EOSINOPHILS PERCENT AUTO 0.3 % (0.0-7.0); HEMATOCRIT 42.5 % (36.0-46.0); HEMOGLOBIN 13.8 g/dL (12.0-16.0); LYMPHOCYTES ABSOLUTE AUTO 0.5 K/uL (0.6-2.4); LYMPHOCYTES PERCENT AUTO 5.1 % (16.0-40.0); MEAN CORPUSCULAR HEMOGLOBIN 27.6 pg (27.0-32.0); MEAN CORPUSCULAR HGB CONC 32.5 g/dL (31.0-37.0); MONOCYTES ABSOLUTE AUTO 0.2 K/uL (0.0-0.8); MONOCYTES PERCENT AUTO 2.7 % (0.0-15.0); NEUTROPHILS ABSOLUTE AUTO 8.2 K/uL (1.4-5.7); NEUTROPHILS PERCENT AUTO 91.6 % (48.0-80.0); NRBC ABSOLUTE 0 K/uL; PLATELET COUNT,PLT 403 K/uL (150-400); WHITE BLOOD CELL COUNT,WBC 8.91 K/uL (4.0-11.0)
[2023-07-01 10:16] LABS: A/G RATIO 0.9 (0.9-1.6); ALBUMIN 3.8 g/dL (3.4-5.0); BILIRUBIN TOTAL 0.4 mg/dL (0.2-1.0); CALCIUM 8.9 mg/dL (8.5-10.1); CARBON DIOXIDE,CO2 26.6 mmol/L (21.0-32.0); CREATININE 0.8 mg/dL (0.6-1.0); EST CRCL DRUG DOSING (CG) 57.74 mL/min; POTASSIUM,K 3.7 mmol/L (3.5-5.1); PROTEIN TOTAL,TP 8.1 g/dL (6.4-8.2)
[2023-07-01 10:25] LABS: LACTIC ACID 1.6 mmol/L (0.4-2.0)
[2023-07-01] MEDS ORDERED: droPERidol 5 MG/2 ML SDV IVPUSH ONE (10:31)
[2023-07-01] MEDS ORDERED: diphenhydrAMINE 50 MG/ML SDV IVPUSH ONE (10:31)
[2023-07-01] MEDS ORDERED: Sodium Chloride 0.9% 1,000 ML IV ONE (10:31)
[2023-07-01] MEDS ORDERED: Iopamidol 755 MG/ML 500 ML Multipack Bottle IVPUSH STA (11:53)
[2023-07-01 13:49] LABS: APPEARANCE,URINE CLEAR; BILIRUBIN,URINE NEGATIVE (NEGATIVE); COLOR,URINE YELLOW; GLUCOSE,URINE NEGATIVE (NEGATIVE); KETONES,URINE TRACE mg/dL (NEGATIVE); LEUKOCYTE ESTERASE,URINE NEGATIVE (NEGATIVE); NITRITE,URINE NEGATIVE (NEGATIVE); OCCULT BLOOD,URINE NEGATIVE (NEGATIVE); PROTEIN,URINE NEGATIVE (NEGATIVE); UROBILINOGEN,URINE 0.2 EU/dL (<2.0)
[2023-07-01 15:40] VITALS: BP 106/68; PULSE 76
== END 2023-07-01 15:38 | disposition home or self-care (01) ==
LOC: MW.ED 09:00
DX: R07.9 Chest pain, unspecified (principal); R11.2 Nausea with vomiting, unspecified; Z88.8 Allergy status to other drugs, medicaments and biological substances; Z91.040 Latex allergy status; Z88.2 Allergy status to sulfonamides; Z88.1 Allergy status to other antibiotic agents; Z20.822 Contact with and (suspected) exposure to COVID-19
CPT/HCPCS: 36415; 74177; 80053; 81003; 83605; 83690; 84484; 85025; 87635; 93005; 96361; 96374; 96375; 99285; J1200; J1790; J2405; J3490; J7030; Q9967; 93010; 99284; U0002

== ENCOUNTER 2023-07-20 20:00 | Emergency (ER) | payer BC ==
[2023-07-20] MEDS ORDERED: Sodium Chloride 0.9% 2.5 ML Syringe FLUSH PRN (20:42)
[2023-07-20] MEDS ORDERED: Sodium Chloride 0.9% 10 ML Syringe FLUSH PRN (20:42)
[2023-07-20] MEDS ORDERED: Sodium Chloride 0.9% 20 ML SDV IV PRN (20:42)
[2023-07-20 20:56] LABS: INR 0.96 (0.86-1.11); PTT,PARTIAL THROMBOPLSTIN TIME 33.4 SEC (23.9-30.7)
[2023-07-20 20:59] LABS: A/G RATIO 0.9 (0.9-1.6); ALBUMIN 3.7 g/dL (3.4-5.0); BILIRUBIN TOTAL 0.2 mg/dL (0.2-1.0); CALCIUM 9.1 mg/dL (8.5-10.1); CARBON DIOXIDE,CO2 29.9 mmol/L (21.0-32.0); CREATININE 0.8 mg/dL (0.6-1.0); EST CRCL DRUG DOSING (CG) 57.07 mL/min; POTASSIUM,K 4.1 mmol/L (3.5-5.1); PROTEIN TOTAL,TP 7.8 g/dL (6.4-8.2)
[2023-07-20 21:01] LABS: BASOPHILS ABSOLUTE AUTO 0.1 K/uL (0.0-0.1); BASOPHILS PERCENT AUTO 1.4 % (0.0-1.5); EOSINOPHILS ABSOLUTE AUTO 0.6 K/uL (0.0-0.7); EOSINOPHILS PERCENT AUTO 6.9 % (0.0-7.0); HEMATOCRIT 40.5 % (36.0-46.0); HEMOGLOBIN 13.1 g/dL (12.0-16.0); LYMPHOCYTES ABSOLUTE AUTO 1.9 K/uL (0.6-2.4); LYMPHOCYTES PERCENT AUTO 22.7 % (16.0-40.0); MEAN CORPUSCULAR HEMOGLOBIN 27.8 pg (27.0-32.0); MEAN CORPUSCULAR HGB CONC 32.3 g/dL (31.0-37.0); MONOCYTES ABSOLUTE AUTO 0.7 K/uL (0.0-0.8); MONOCYTES PERCENT AUTO 8.7 % (0.0-15.0); NEUTROPHILS ABSOLUTE AUTO 5.1 K/uL (1.4-5.7); NEUTROPHILS PERCENT AUTO 60.3 % (48.0-80.0); NRBC ABSOLUTE 0 K/uL; PLATELET COUNT,PLT 463 K/uL (150-400); RED BLOOD CELL COUNT 4.71 M/uL (4.30-5.90); WHITE BLOOD CELL COUNT,WBC 8.42 K/uL (4.0-11.0)
[2023-07-20] MEDS ORDERED: Iopamidol 755 MG/ML 500 ML Multipack Bottle IVPUSH STA (21:03)
[2023-07-21 00:20] VITALS: BP 107/54; PULSE 64
== END 2023-07-21 01:20 ==
LOC: MW.ED 20:00
DX: I63.9 Cerebral infarction, unspecified (principal); F17.210 Nicotine dependence, cigarettes, uncomplicated; K21.9 Gastro-esophageal reflux disease without esophagitis; Z79.899 Other long term (current) drug therapy; Z88.2 Allergy status to sulfonamides; Z88.8 Allergy status to other drugs, medicaments and biological substances; Z91.040 Latex allergy status; Z88.5 Allergy status to narcotic agent
CPT/HCPCS: 36415; 70450; 70496; 70498; 80053; 82947; 85025; 85610; 85730; 93005; 99284; Q9967; 93010; 99285

== ENCOUNTER 2024-02-14 09:12 | Emergency (ER) | payer BC ==
[2024-02-14 09:51] LABS: BASOPHILS ABSOLUTE AUTO 0.06 K/uL (0.00-0.20); BASOPHILS PERCENT AUTO 0.5 % (0.0-1.0); EOSINOPHILS ABSOLUTE AUTO 0.04 K/uL (0.00-0.45); EOSINOPHILS PERCENT AUTO 0.3 % (0.0-6.0); HEMATOCRIT 38.2 % (37.0-47.0); HEMOGLOBIN 12.9 g/dL (12.0-16.0); IMMATURE GRAN ABSOLUTE AUTO 0.02 K/uL (0.00-0.05); IMMATURE GRAN PERCENT AUTO 0.2 % (0.0-0.4); LYMPHOCYTES ABSOLUTE AUTO 0.58 K/uL (1.00-4.80); LYMPHOCYTES PERCENT AUTO 4.5 % (24.0-44.0); MEAN CORPUSCULAR HEMOGLOBIN 28.7 pg (28.0-32.0); MEAN CORPUSCULAR HGB CONC 33.8 g/dL (32.0-36.0); MEAN CORPUSCULAR VOLUME 84.9 fL (83.0-99.0); MEAN PLATELET VOLUME 8.9 fL (9.4-12.3); MONOCYTES ABSOLUTE AUTO 0.65 K/uL (0.00-0.80); NEUTROPHILS ABSOLUTE AUTO 11.62 K/uL (1.80-7.70); NEUTROPHILS PERCENT AUTO 89.5 % (41.0-71.0); PLATELET COUNT,PLT 364 K/uL (150-400); WHITE BLOOD CELL COUNT,WBC 12.97 K/uL (3.9-11.3)
[2024-02-14] MEDS: Sodium Chloride 0.9% 1,000 ML IV ONE (09:56)
[2024-02-14] MEDS: droPERidol 5 MG/2 ML SDV IVPUSH ONE (09:56)
[2024-02-14] MEDS: Sodium Chloride 0.9% 2.5 ML Syringe FLUSH PRN (09:57)
[2024-02-14] MEDS: Sodium Chloride 0.9% 10 ML Syringe FLUSH PRN (09:57)
[2024-02-14 10:21] LABS: A/G RATIO 0.9 (0.9-1.6); ALANINE AMINOTRANSFERASE,ALT 25 IU/L (14-63); ALBUMIN 3.6 g/dL (3.4-5.0); ALKALINE PHOSPHATASE 108 U/L (46-116); ASPARTATE AMNIOTRANSFERASE,AST 30 IU/L (15-37); BILIRUBIN TOTAL 0.5 mg/dL (0.2-1.0); BLOOD UREA NITROGEN,BUN 21 mg/dL (7.0-18.0); CALCIUM 9.5 mg/dL (8.5-10.1); CARBON DIOXIDE,CO2 25.9 mmol/L (21.0-32.0); CHLORIDE,CL 105 mmol/L (98-107); EST CRCL DRUG DOSING (CG) 45.66 mL/min; ETHANOL BLOOD MEDICAL <3 mg/dL; GLUCOSE RANDOM 190 mg/dL (74-106); LIPASE 36 U/L (16-77); POTASSIUM,K 3.7 mmol/L (3.5-5.1); PROTEIN TOTAL,TP 7.5 g/dL (6.4-8.2); SODIUM,NA 143 mmol/L (136-145)
[2024-02-14 10:22] LABS: ESTIMATED GFR 67 mL/min (>60)
[2024-02-14 11:05] LABS: APPEARANCE,URINE CLEAR; BILIRUBIN,URINE NEGATIVE (NEGATIVE); COLOR,URINE YELLOW; GLUCOSE,URINE NEGATIVE (NEGATIVE); KETONES,URINE NEGATIVE (NEGATIVE); LEUKOCYTE ESTERASE,URINE NEGATIVE (NEGATIVE); NITRITE,URINE NEGATIVE (NEGATIVE); OCCULT BLOOD,URINE NEGATIVE (NEGATIVE); PH,URINE 8.5 (5.0-8.0); PROTEIN,URINE 30 mg/dL (NEGATIVE); UROBILINOGEN,URINE 0.2 EU/dL (<2.0)
[2024-02-14 11:11] LABS: BACTERIA,URINE FEW (NEGATIVE); EPITHELIAL CELLS,URINE NOT SEEN (NONE-FEW); MUCUS,URINE LIGHT (NONE-MOD); RBC,URINE 0-1 (0-2/HPF); WBC,URINE 0-1 (0-5/HPF)
[2024-02-14 11:15] LABS: AMPHETAMINES SCREEN, URINE NEGATIVE (CUTOFF=500); BARBITURATE SCREEN,URINE NEGATIVE (CUTOFF=200); BENZODIAZEPINES SCREEN,URINE PRESUMPTIVE POSITIVE (CUTOFF=150); BUPRENORPHINE SCREEN,URINE NEGATIVE (CUTOFF=10); METHADONE SCREEN, URINE NEGATIVE (CUTOFF=200); METHAMPHETAMINES SCREEN, URINE NEGATIVE (CUTOFF=500); OXYCODONE SCREEN,URINE NEGATIVE (CUT0FF=100); PCP SCREEN,URINE NEGATIVE (CUTOFF=25); THC SCREEN,URINE 20 NG/ML PRESUMPTIVE POSITIVE (CUTOFF=50)
[2024-02-14 13:36] VITALS: BP 100/52; PULSE 73
== END 2024-02-14 13:17 | disposition home or self-care (01) ==
LOC: MW.ED 09:12
DX: F12.10 Cannabis abuse, uncomplicated (principal); R11.2 Nausea with vomiting, unspecified; K21.9 Gastro-esophageal reflux disease without esophagitis; Z88.8 Allergy status to other drugs, medicaments and biological substances; Z88.2 Allergy status to sulfonamides; Z91.040 Latex allergy status; Z88.5 Allergy status to narcotic agent; Z88.1 Allergy status to other antibiotic agents; Z79.899 Other long term (current) drug therapy
CPT/HCPCS: 36415; 71045; 76705; 80053; 80305; 80307; 81001; 83690; 84484; 85025; 93005; 96361; 96374; 99284; J1790; J3490; J7030; 93010

== ENCOUNTER 2024-05-22 06:16 | Day surgery (SDC) | payer BC ==
[~2024-05-22 06:16] MED LIST: Albuterol 0.083% 2.5 MG/3 ML Neb Soln NEB PRN; HYDROmorphone 1 MG/ML Syringe IVPUSH PRN; Metoclopramide 10 MG/2 ML SDV IVPUSH PRN; Morphine 2 MG/ML SYRINGE IVPUSH PRN; Naloxone 0.4 MG/ML SDV IVPUSH PRN; Ondansetron 4 MG/2 ML SDV IVPUSH PRN; Sodium Chloride 0.9% 10 ML Syringe FLUSH PRN; Sodium Chloride 0.9% 2.5 ML Syringe FLUSH PRN; Sodium Chloride 0.9% 20 ML SDV IV PRN; ceFAZolin 2 GM in Sodium Chloride 0.9% 50 ML IV ONE; droPERidol 5 MG/2 ML SDV IVPUSH PRN; fentaNYL 50 MCG/ML SDV IVPUSH PRN
[2024-05-22] MEDS ORDERED: Scopalamine 1mg/3day Transdermal Patch ONE (06:36)
[2024-05-22] MEDS ORDERED: Lidocaine 2% 5 ML SDV ONE (07:02)
[2024-05-22] MEDS ORDERED: fentaNYL 100 MCG/2 ML SDV ONE (07:02)
[2024-05-22] MEDS ORDERED: Rocuronium Bromide 50 MG/5 ML Syringe ONE (07:03)
[2024-05-22] MEDS ORDERED: Propofol 200 MG/20 ML SDV ONE (07:03)
[2024-05-22] MEDS: Lactated Ringers 1,000 ML IV SCH (07:03)
[2024-05-22] MEDS ORDERED: Ropivacaine 0.5% 5 MG/ML 30 ML SDV ONE ×2 (07:18→07:46)
[2024-05-22] MEDS ORDERED: Bupivacaine 0.25% 30 ML SDV ONE ×2 (07:18→07:46)
[2024-05-22] MEDS: Scopalamine 1mg/3day Transdermal Patch TRDERM PRN (07:19)
[2024-05-22] MEDS ORDERED: Morphine 10 MG/ML SDV ONE (07:21)
[2024-05-22] MEDS ORDERED: Bupivacaine 0.5% 30 ML SDV ONE (07:27)
[2024-05-22] MEDS ORDERED: Midazolam 1 MG/ML 2 ML SDV ONE (07:33)
[2024-05-22] MEDS ORDERED: dexmedeTOMIDine HCl 200 MCG/2 ML SDV ONE ×2 (07:59→09:31)
[2024-05-22] MEDS ORDERED: ceFAZolin 1 GM Vial ONE (08:15)
[2024-05-22] MEDS ORDERED: Ondansetron 4 MG/2 ML SDV ONE (08:51)
[2024-05-22] MEDS ORDERED: Sugammadex Sodium 200 MG/2 ML VIAL IV ONE (08:51)
[2024-05-22] MEDS ORDERED: Dexamethasone 4 MG/ML 5 ML MDV ONE (08:51)
[2024-05-22] MEDS ORDERED: Gabapentin 300 MG Cap ONE (11:08)
[2024-05-22 13:18] VITALS: BP 137/71; PULSE 64
== END 2024-05-22 11:38 | disposition home or self-care (01) ==
LOC: MW.SDS 06:16
PROVIDERS: ATTEND Surgery
DX: K80.44 Calculus of bile duct with chronic cholecystitis without obstruction (principal); K82.8 Other specified diseases of gallbladder; E78.00 Pure hypercholesterolemia, unspecified; F41.9 Anxiety disorder, unspecified; K21.9 Gastro-esophageal reflux disease without esophagitis; F32.A Depression, unspecified; F17.210 Nicotine dependence, cigarettes, uncomplicated; Z79.82 Long term (current) use of aspirin; Z79.899 Other long term (current) drug therapy; Z88.5 Allergy status to narcotic agent; Z88.2 Allergy status to sulfonamides; Z91.040 Latex allergy status
CPT/HCPCS: 47562; 64488; A9270; J0665; J0690; J1100; J2250; J2405; J2704; J2795; J3010; J3490; J7120; 00790; J2270

== ENCOUNTER 2025-02-25 08:44 | Emergency (ER) | payer BC ==
[2025-02-25] MEDS ORDERED: Sodium Chloride 0.9% 10 ML Syringe FLUSH PRN (09:09)
[2025-02-25] MEDS ORDERED: Sodium Chloride 0.9% 2.5 ML Syringe FLUSH PRN (09:09)
[2025-02-25 09:34] LABS: BASOPHILS ABSOLUTE AUTO 0.07 K/uL (0.00-0.20); BASOPHILS PERCENT AUTO 0.8 % (0.0-1.0); EOSINOPHILS PERCENT AUTO 3.6 % (0.0-6.0); HEMATOCRIT 32.6 % (37.0-47.0); HEMOGLOBIN 10.6 g/dL (12.0-16.0); IMMATURE GRAN ABSOLUTE AUTO 0.02 K/uL (0.00-0.05); IMMATURE GRAN PERCENT AUTO 0.2 % (0.0-0.4); LYMPHOCYTES ABSOLUTE AUTO 1.36 K/uL (1.00-4.80); LYMPHOCYTES PERCENT AUTO 16.5 % (24.0-44.0); MEAN CORPUSCULAR HGB CONC 32.5 g/dL (32.0-36.0); MEAN PLATELET VOLUME 8.7 fL (9.4-12.3); MONOCYTES ABSOLUTE AUTO 0.51 K/uL (0.00-0.80); MONOCYTES PERCENT AUTO 6.2 % (0.0-8.0); NEUTROPHILS ABSOLUTE AUTO 5.98 K/uL (1.80-7.70); NEUTROPHILS PERCENT AUTO 72.7 % (41.0-71.0); PLATELET COUNT,PLT 295 K/uL (150-400); RED BLOOD CELL COUNT 3.93 M/uL (4.10-5.30); WHITE BLOOD CELL COUNT,WBC 8.24 K/uL (3.9-11.3)
[2025-02-25 09:56] LABS: CALCIUM 8.7 mg/dL (8.5-10.1); CREATININE 0.8 mg/dL (0.6-1.0); EST CRCL DRUG DOSING (CG) 56.4 mL/min; POTASSIUM,K 3.8 mmol/L (3.5-5.1)
[2025-02-25 11:19] LABS: APPEARANCE,URINE CLEAR; BILIRUBIN,URINE NEGATIVE (NEGATIVE); COLOR,URINE YELLOW; GLUCOSE,URINE NEGATIVE (NEGATIVE); KETONES,URINE NEGATIVE (NEGATIVE); LEUKOCYTE ESTERASE,URINE NEGATIVE (NEGATIVE); NITRITE,URINE NEGATIVE (NEGATIVE); OCCULT BLOOD,URINE NEGATIVE (NEGATIVE); PROTEIN,URINE NEGATIVE (NEGATIVE); UROBILINOGEN,URINE 0.2 EU/dL (<2.0)
[2025-02-25 12:26] VITALS: BP 141/98; PULSE 63
== END 2025-02-25 12:33 | disposition home or self-care (01) ==
LOC: MW.ED 08:44
DX: R41.0 Disorientation, unspecified (principal); Z90.49 Acquired absence of other specified parts of digestive tract; E78.00 Pure hypercholesterolemia, unspecified; Z79.899 Other long term (current) drug therapy; Z88.2 Allergy status to sulfonamides; Z88.5 Allergy status to narcotic agent; Z88.8 Allergy status to other drugs, medicaments and biological substances; Z88.1 Allergy status to other antibiotic agents; Z91.040 Latex allergy status; Z90.710 Acquired absence of both cervix and uterus
CPT/HCPCS: 36415; 70450; 70450-26; 80048; 81003; 84484; 85025; 93005; 93010; 99284; 99285

== ENCOUNTER 2025-07-18 08:45 | Day surgery (SDC) | payer BC ==
[~2025-07-18 08:45] MED LIST changes: -Albuterol 0.083% 2.5 MG/3 ML Neb Soln NEB PRN; -HYDROmorphone 1 MG/ML Syringe IVPUSH PRN; -Metoclopramide 10 MG/2 ML SDV IVPUSH PRN; -Morphine 2 MG/ML SYRINGE IVPUSH PRN; -Naloxone 0.4 MG/ML SDV IVPUSH PRN; -Ondansetron 4 MG/2 ML SDV IVPUSH PRN; -Sodium Chloride 0.9% 20 ML SDV IV PRN; -ceFAZolin 2 GM in Sodium Chloride 0.9% 50 ML IV ONE; -droPERidol 5 MG/2 ML SDV IVPUSH PRN; -fentaNYL 50 MCG/ML SDV IVPUSH PRN
[2025-07-18] MEDS: Lactated Ringers 1,000 ML IV SCH (09:15)
[2025-07-18] MEDS ORDERED: Propofol 200 MG/20 ML SDV ONE (09:52)
[2025-07-18 13:17] VITALS: BP 108/64; PULSE 65
== END 2025-07-18 11:00 | disposition home or self-care (01) ==
LOC: MW.SDS 08:45
PROVIDERS: ATTEND Surgery
DX: D12.0 Benign neoplasm of cecum (principal); K52.9 Noninfective gastroenteritis and colitis, unspecified; K44.9 Diaphragmatic hernia without obstruction or gangrene; F17.210 Nicotine dependence, cigarettes, uncomplicated; Z88.8 Allergy status to other drugs, medicaments and biological substances; Z88.5 Allergy status to narcotic agent; Z79.82 Long term (current) use of aspirin; Z91.040 Latex allergy status; Z79.899 Other long term (current) drug therapy; Z86.0100 Personal history of colon polyps, unspecified
CPT/HCPCS: 43239; 45380; J2003; J2704; J7120; 00813

== ENCOUNTER 2025-08-20 12:21 | Emergency (ER) | payer BC ==
[2025-08-20] MEDS ORDERED: Sodium Chloride 0.9% 2.5 ML Syringe FLUSH PRN (12:38)
[2025-08-20] MEDS ORDERED: Sodium Chloride 0.9% 10 ML Syringe FLUSH PRN (12:38)
[2025-08-20] MEDS: Iopamidol 755 MG/ML 500 ML Multipack Bottle IVPUSH STA (12:46)
[2025-08-20 12:52] LABS: BASOPHILS ABSOLUTE AUTO 0.07 K/uL (0.00-0.20); BASOPHILS PERCENT AUTO 0.9 % (0.0-1.0); EOSINOPHILS ABSOLUTE AUTO 0.03 K/uL (0.00-0.45); EOSINOPHILS PERCENT AUTO 0.4 % (0.0-6.0); IMMATURE GRAN ABSOLUTE AUTO 0.02 K/uL (0.00-0.05); IMMATURE GRAN PERCENT AUTO 0.3 % (0.0-0.4); LYMPHOCYTES ABSOLUTE AUTO 1.45 K/uL (1.00-4.80); LYMPHOCYTES PERCENT AUTO 18.2 % (24.0-44.0); MEAN PLATELET VOLUME 8.8 fL (9.4-12.3); MONOCYTES ABSOLUTE AUTO 0.27 K/uL (0.00-0.80); MONOCYTES PERCENT AUTO 3.4 % (0.0-8.0); NEUTROPHILS ABSOLUTE AUTO 6.11 K/uL (1.80-7.70); NEUTROPHILS PERCENT AUTO 76.8 % (41.0-71.0); NRBC ABSOLUTE 0.00 K/uL (0.00-0.02); NRBC PERCENT 0.0 /100WBC (0.0-0.2); PLATELET COUNT,PLT 430 K/uL (150-400); RED BLOOD CELL COUNT 4.24 M/uL (4.10-5.30); WHITE BLOOD CELL COUNT,WBC 7.95 K/uL (3.9-11.3)
[2025-08-20 13:00] LABS: INR 0.94 (0.86-1.11); PTT,PARTIAL THROMBOPLSTIN TIME 27.5 SEC (23.9-30.7)
[2025-08-20 13:12] LABS: A/G RATIO 1.0 (0.9-1.6); ALANINE AMINOTRANSFERASE,ALT 32 IU/L (14-63); ASPARTATE AMNIOTRANSFERASE,AST 28 IU/L (15-37); BILIRUBIN TOTAL 0.3 mg/dL (0.2-1.0); BLOOD UREA NITROGEN,BUN 20 mg/dL (7.0-18.0); CARBON DIOXIDE,CO2 28.9 mmol/L (21.0-32.0); CHLORIDE,CL 106 mmol/L (98-107); CREATININE 0.8 mg/dL (0.6-1.0); EST CRCL DRUG DOSING (CG) 55.73 mL/min; ESTIMATED GFR 86 mL/min (>60); GLUCOSE RANDOM 119 mg/dL (74-106); POTASSIUM,K 4.2 mmol/L (3.5-5.1); PROTEIN TOTAL,TP 7.8 g/dL (6.4-8.2); SODIUM,NA 142 mmol/L (136-145)
[2025-08-20 13:36] LABS: APPEARANCE,URINE CLEAR; GLUCOSE,URINE NEGATIVE (NEGATIVE); OCCULT BLOOD,URINE NEGATIVE (NEGATIVE)
[2025-08-20 13:55] LABS: EPITHELIAL CELLS,URINE RARE (NONE-FEW)
[2025-08-20 16:24] VITALS: BP 134/50; PULSE 73
[2025-08-20] MEDS: LORazepam 2 MG/ML SDV IVPUSH ONE (17:56)
== END 2025-08-20 18:15 ==
LOC: MW.ED 12:21
DX: I63.9 Cerebral infarction, unspecified (principal); E78.00 Pure hypercholesterolemia, unspecified; K21.9 Gastro-esophageal reflux disease without esophagitis; E03.9 Hypothyroidism, unspecified; Z79.82 Long term (current) use of aspirin; Z79.899 Other long term (current) drug therapy; Z88.2 Allergy status to sulfonamides; Z88.8 Allergy status to other drugs, medicaments and biological substances; Z88.5 Allergy status to narcotic agent; Z91.040 Latex allergy status
CPT/HCPCS: 36415; 70450; 70496; 70498; 71045; 80053; 81001; 84484; 85025; 85610; 85730; 93005; 96374; 99285; J2060; Q9967; 93010

== ENCOUNTER 2025-08-28 07:56 | Emergency (ER) | payer BC ==
[2025-08-28 08:32] LABS: BASOPHILS ABSOLUTE AUTO 0.12 K/uL (0.00-0.20); BASOPHILS PERCENT AUTO 1.5 % (0.0-1.0); EOSINOPHILS ABSOLUTE AUTO 0.55 K/uL (0.00-0.45); EOSINOPHILS PERCENT AUTO 6.7 % (0.0-6.0); IMMATURE GRAN ABSOLUTE AUTO 0.01 K/uL (0.00-0.05); IMMATURE GRAN PERCENT AUTO 0.1 % (0.0-0.4); LYMPHOCYTES ABSOLUTE AUTO 1.96 K/uL (1.00-4.80); LYMPHOCYTES PERCENT AUTO 23.8 % (24.0-44.0); MEAN PLATELET VOLUME 8.6 fL (9.4-12.3); MONOCYTES ABSOLUTE AUTO 0.58 K/uL (0.00-0.80); MONOCYTES PERCENT AUTO 7.0 % (0.0-8.0); NEUTROPHILS ABSOLUTE AUTO 5.02 K/uL (1.80-7.70); NEUTROPHILS PERCENT AUTO 60.9 % (41.0-71.0); NRBC ABSOLUTE 0.00 K/uL (0.00-0.02); NRBC PERCENT 0.0 /100WBC (0.0-0.2); PLATELET COUNT,PLT 345 K/uL (150-400); RED BLOOD CELL COUNT 4.14 M/uL (4.10-5.30); WHITE BLOOD CELL COUNT,WBC 8.24 K/uL (3.9-11.3)
[2025-08-28 08:42] LABS: INR 0.98 (0.86-1.11); PTT,PARTIAL THROMBOPLSTIN TIME 27.3 SEC (23.9-30.7)
[2025-08-28 08:58] LABS: A/G RATIO 1.0 (0.9-1.6); ALANINE AMINOTRANSFERASE,ALT 22 IU/L (14-63); ASPARTATE AMNIOTRANSFERASE,AST 19 IU/L (15-37); BILIRUBIN TOTAL 0.3 mg/dL (0.2-1.0); BLOOD UREA NITROGEN,BUN 21 mg/dL (7.0-18.0); CARBON DIOXIDE,CO2 29.7 mmol/L (21.0-32.0); CHLORIDE,CL 106 mmol/L (98-107); CREATININE 0.8 mg/dL (0.6-1.0); GLUCOSE RANDOM 79 mg/dL (74-106); POTASSIUM,K 3.8 mmol/L (3.5-5.1); PROTEIN TOTAL,TP 7.1 g/dL (6.4-8.2); SODIUM,NA 144 mmol/L (136-145)
[2025-08-28 09:03] LABS: ESTIMATED GFR 86 mL/min (>60)
[2025-08-28] MEDS: Iopamidol 755 Mg/ML 100 ML Bottle IVPUSH ONE (09:31)
[2025-08-28] MEDS: Ondansetron 4 MG/2 ML SDV IVPUSH ONE (14:54)
[2025-08-28 15:34] VITALS: BP 145/75; PULSE 62
== END 2025-08-28 15:01 ==
LOC: MW.ED 07:56
DX: G45.9 Transient cerebral ischemic attack, unspecified (principal); K21.9 Gastro-esophageal reflux disease without esophagitis; E78.00 Pure hypercholesterolemia, unspecified; Z88.5 Allergy status to narcotic agent; Z88.8 Allergy status to other drugs, medicaments and biological substances; Z79.82 Long term (current) use of aspirin; Z79.899 Other long term (current) drug therapy
CPT/HCPCS: 36415; 70450; 70496; 70498; 80053; 82947; 85025; 85610; 85730; 96372; 96374; 99285; J1650; J2405; Q9967; 99283